=== PATIENT | female | born 1985 | race Caucasian/White ===

== ENCOUNTER → 2022-12-07 09:05 | Outpatient (CLI) | payer OTHER, SELFPAY ==
--- NOTE | ~2022-12-07 | MMUS_ITS ---
EXAMINATION: MM diagnostic juan antonio BI w ace, US breast RT limited HISTORY: Palpable right breast lumps TECHNIQUE: Additional 3-D tomosynthesis images of the breasts were performed and synthetic 2-D images were generated. CAD analysis was submitted and interpreted. High resolution Limited right breast ult rasound was performed. COMPARISON: None BREAST PARENCHYMAL COMPOSITION: Breast composed of scattered areas of fibroglandular density FINDINGS: MAMMOGRAPHIC FINDINGS: There are no suspicious masses, calcifications or architectural distortion in the either breast to azar ggest malignancy. ULTRASOUND: Limited right breast ultrasound: Normal heterogeneous echotexture without focal solid or cystic mass. IMPRESSION: 1. No evidence for malignancy in either breast. 2. Routine yearly screening mammogram and regular clinical breast examination are recommended. BI-RADS Category 1: Negative Reviewed, dictated and finalized at location A. TRON[employer] DEPARTMENT MANAGER IMPRESSION: 1. No evidence for malignancy in either breast. 2. Routine yearly screening mammogram and regular clinical breast examination a re recommended. BI-RADS Category 1: Negative
== END ==
PROVIDERS: PCP Obstetrics & Gynecology; Visit Provider Obstetrics & Gynecology
DX: N63.11 Unspecified lump in the right breast, upper outer quadrant (principal)
CPT/HCPCS: 76642; 77062; 77066; G0279

== ENCOUNTER 2024-05-18 14:43 | Emergency (ER) | payer OTHER, SELFPAY ==
--- NOTE | ~2024-05-18 | XR_ITS ---
PA, oblique, and lateral views of the left third finger CLINICAL HISTORY: Injury FINDINGS: Questionable tiny avulsion fracture from the volar aspect of the base of the third middle p halanx. No other fracture or dislocation seen. Joint spaces are intact. Soft tissues are unremarkable . IMPRESSION: Possible tiny avulsion fracture from the volar aspect of the base of the third middle phalanx. Correl ate for point tenderness. Reviewed, dictated and finalized at location M. IMPRESSION: Possible tiny avulsion fracture from the volar aspect of the base of the third middle phalanx. Correlate for point tenderness.
--- NOTE | ~2024-05-18 | XR_ITS ---
Right ankle Technique: AP, oblique, and lateral views were obtained. Clinical History: Status post fall Findings: No acute fracture or dislocation is seen. Osseous alignment is anatomic. Ankle mortise and other visualized joint spaces are preserved. Soft tissues are otherwise unremarkable. Impression: Unremarkable right ankle. Reviewed, dictated and finalized at [facility]. Impression: Unremarkable right ankle.
[2024-05-18 15:00] VITALS: BP 141/79; PULSE 79; RESP 16; TEMP 37; O2SAT 99
--- NOTE | 2024-05-18 15:01 | ED.GENADULT ---
HPI - General Adult General Chief complaint: Extremity Injury, Lower Stated complaint: right ankle/left middle finger injury Time Seen by Provider: 05/18/24 15:01 Source: patient Mode of arrival: ambulatory Limitations: no limitations History of Present Illness HPI narrative: 39-year-old female patient presents to the [facility] after a fall last night. Patient states she was at a friend's house and it was dark and trying to get her kids into the van and fell off their driveway which had about a 12 in drop. Patient states she twisted her right ankle and jammed her middle finger on her left hand. Denies hitting her head or lost consciousness. Related Data Home Medications Medication Instructions Recorded Confirmed escitalopram oxalate 10 mg tablet 10 mg PO DAILY 05/18/24 05/18/24 Allergies Allergy/AdvReac Type Severity Reaction Status Date / Time clavulanic acid Allergy Severe THROAT Verified 05/18/24 15:03 SWELLS,DIFFICULTY BREATHING amoxicillin [From Augmentin] Allergy Intermediate Difficulty Verified 05/18/24 15:03 Breathing propoxyphene AdvReac Mild DIZZINESS Verified 05/18/24 15:03 HYDROCODONE BIT AdvReac Unknown DIZZINESS Uncoded 05/18/24 15:03 Review of Systems Review of Systems: CONSTITUTIONAL: Denies fever, chills, or sweats. EYES: Denies visual changes, redness, or discharge. ENT: Denies rhinorrhea, congestion, sore throat, or otalgia. CARDIOVASCULAR: Denies chest pain, palpitations, or edema. RESPIRATORY: Denies cough or dyspnea. GASTROINTESTINAL: Denies abdominal pain, nausea, vomiting, or diarrhea. GENITOURINARY: Denies dysuria or hematuria. SKIN: Denies rash or itching. MUSCULOSKELETAL: Denies back pain, joint pain, or myalgia. Positive right ankle pain and positive left middle finger pain NEUROLOGIC: Denies headache, numbness, or weakness. PSYCHIATRIC: Denies anxiety or depression. 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 There is no relevant family history pertinent to the presenting complaint. Exam Narrative: GENERAL: Well-appearing, well-nourished, and in no acute distress. HEAD: Normocephalic, atraumatic. EYES: PERRLA and EOMI. ENT: Nares clear, no rhinorrhea or epistaxis. Mucous membranes moist. NECK: Supple. No lymphadenopathy CHEST: Clear to auscultation. No respiratory distress. HEART: Regular rate and rhythm. No murmur heard. Normal peripheral pulses. ABDOMEN: Soft, nontender, nondistended, normal active bowel sounds. EXTREMITIES: Patient is able to bear weight and ambulate with pain. The R ankle is without obvious asymmetry or deformity when compared to the L ankle. Patient can flex/extend, invert/damon with pain. positive ecchymosis, or soft tissue swelling. bartolome tenderness to palpation over the medial and lateral malleolus. Anterior talofibular ligament, posterior talofibular ligament, calcaneofibular ligament nontender and without swelling. No t
== END 2024-05-18 16:22 | disposition home or self-care (01) ==
PROVIDERS: Emergency Provider Nurse Practitioner Family
DX: S93.401A Sprain of unspecified ligament of right ankle, initial encounter (principal); W17.89XA Other fall from one level to another, initial encounter; S62.653A Nondisplaced fracture of middle phalanx of left middle finger, initial encounter for closed fracture; G62.9 Polyneuropathy, unspecified
CPT/HCPCS: 29130; 73140; 73610; 99214; G0463

== ENCOUNTER 2025-05-22 17:46 | Emergency (ER) | payer BC, OTHER, SELFPAY ==
--- NOTE | ~2025-05-22 | CT_ITS ---
EXAMINATION: CTA chest PE protocol DATE: 05/22/2025 22:46 INDICATION: CP/SOB, recent procedures TECHNIQUE: Computed tomography angiography (CTA) of the chest was performed with 100 mL Omnipaque-350 intravenous contrast timed to evaluate the pulmonary arteries. Coronal maximum intensity projection 3D-reconstructions were created by the technologist. The dose-length product (DLP) was 297.43 mGy-cm. Automated exposure control and iterative reconstruction technique were employed. COMPARISON: None. FINDINGS: Lung parenchyma and airways: Clear. Pleura: Unremarkable. Thoracic inlet, axillae and chest wall: Unremarkable. Thoracic aorta: No significant dilation. No dissection. Mediastinum: Normal. Heart and pericardium: Normal. Coronary artery calcifications: Absent. Upper abdomen: Multiple hyperenhancing liver masses measuring up to 6.2 cm in the right lobe. 4 mm an d 8mm hyperenhancing foci in the spleen. Bones: No acute osseous finding. Pulmonary arteries: Study quality: Somewhat limited due to mild motion and beam hardening, overall di agnostic. No pulmonary emboli detected. IMPRESSION: No CT evidence of acute pulmonary embolus. No acute process detected in the chest. Multiple enhancing liver masses measuring up to 6.2 cm in the right lobe, may represent adenomas, FNH , or primary or secondary malignancy. Subcentimeter hyperenhancing foci in the spleen may represent h emangiomas or hypervascular metastases. Recommend MRI of the abdomen for further characterization. Reviewed, dictated and finalized at location K. IMPRESSION: No CT evidence of acute pulmonary embolus. No acute process detected in the chest. Multiple enhancing liver masses measuring up to 6.2 cm in the right lobe, may r epresent adenomas, FNH, or primary or secondary malignancy. Subcentimeter hyper enhancing foci in the spleen may represent hemangiomas or hypervascular metasta ses. Recommend MRI of the abdomen for further characterization.
--- NOTE | ~2025-05-22 | XR_ITS ---
EXAMINATION: XR chest 2V Exam Date/Time: 05/22/2025 18:14 CDT HISTORY: shortness of breath and chest heaviness Comparison: None. RESULT: Lines, tubes, and devices: None. Lungs and pleura: Clear. Cardiomediastinal silhouette: Normal. Other: No acute osseous or upper abdominal finding. IMPRESSION: No acute cardiopulmonary process. Reviewed, dictated and finalized at location K.
--- OUTSIDE RECORDS SUMMARY | 2025-05-22 17:49 | XMS_ITS | Encounter Summary ---
Author Organization [facility] Address [address] [place] [address] Phone Care Team Providers Care Manager Mobility Name Role Phone Billy Paz MD Unavailable [phone] Zion Jimenez MD Primary Care Provider Reason for Visit * Reason Onset Date Comments requesting referral 05/20/2025 Encounter Details Date Type Department Care Team (Late st Contact Info) Description 05/20/2025 Telephone [facility] Ophthalmology [address] [place], [place] [id number] Sydney Medina, [place] [address] [phone] requesting referral Social History Tobacco Use Types Packs/Day Years Used Date Smoking Tobacco: Never Passive Smoke Exposure: Never Smokeless Tobacco: Never Alcohol Use Standard Drinks/Week Comments No 0 (1 standard drink = 0.6 oz pur e alcohol) AUDIT-C Answer Date Recorded Q1: How often do you have a drink containing alc ohol? Never 04/20/2025 Average Number of Drinks Not on file 025 Frequency of Binge Drinking Not on file 04/05 PHQ-2 Answer Date Recorded PHQ-2 Total Score (If total score is 3 or more points, staff should administer the PHQ-9) 0 12/20/2021 Exercise Vital Sign Answer Date Recorde d On average, how many days pe r week do you engage in moderate to strenuous exercise (like a brisk walk)? 0 days 12/20/2021 On average, how many minutes do you engage in exercise at this level? 0 min 12/20/2021 Personal Safety Answer Date Recorded Have you ever been in or are you currently in a harmful physical or emotional relationship or is someone making you feel afraid or unsafe? Denies 05/19/2025 Comments No Sex and Gender Information Value Date Recorded Sex Assigned at Not on file Legal Sex Female 2:16 AM LEADERSHIP DEVELOPMENT INSTRUCTOR Gender Identity Female 11/22/2022 10:26 AM LEADERSHIP DEVELOPMENT INSTRUCTOR Sexual Orientation Straight 11/22/2022 10 :26 AM LEADERSHIP DEVELOPMENT INSTRUCTOR documented as of this encounter Miscellaneous Notes * Telephone Encounter - Princess Lynn - 05/22/2025 3:42 PM CDT She is scheduled for 06/18/25 at [address] Sood Please review if this ok per Dr. Craven Urgent request. * Telephone Encounter - Princess Lynn - 05/22/2025 3:29 PM CDT MD review for urgency per note below Noted from Dr. Craven I spoke with Katrin Swna about the lumbar puncture results. The elevated opening pressure confirmed a diagnosis of idiopathic intracranial hypertension. The topiramate was increased to 50mg BID. An urgent referral to neuro ophthalmology was placed. Pt states increased SOB, syncope felling, dizzy spells, brain fog and they reduced her Topamax to25 mg BID po. The squiggly line in vision have improved. After the LP she had to have a blood patch. * Telephone Encounter - Juan A Shannon MD - 05/21/2025 11:47 AM CDT It looks like she found a completely normal examination which is very reassuring. All of the MRI findings are nonspecific. I am not sure why we would need to see her unless she develops new symptoms or papilledema. * Telephone Encounter - Sarah Lopez - 05/20/2025 12:58 PM CDT Pt called stating they were referred by Neurologist Dr. Craven to be seen by neuro ophthalmology. They were seen by Dr. Mae in January and requesting a referral to neuro ophthalmology. Dr. Craven is concerned about the squiggly lines that last 45 min or so on right side once a weekwould be a precursor to vision loss. Please call pt back [phone] documented in this encounter Plan of Treatment Not on file documented as of this encounter Visit Diagnoses Not on filedocumented in this encounter Care Teams Manager Mobility Relationship Specialty Start Date End Date Zion Jimenez MD [address] [place] [address] PCP - General Endocrinology Diabetes & Metabolism 08/31/21 Billy Paz MD [address] [place] [address] Referring Physician Obstetrics and Gynecology 04/18/21 documented as of this encounter
--- OUTSIDE RECORDS SUMMARY | 2025-05-22 17:49 | XMS_ITS | Encounter Summary ---
Author Organization [facility] Address [address] [place] [address] Care Team Providers Care Management Nurse Rn Name Role Phone Billy Paz MD Unavailable [phone] Zion Jimenez MD Primary Care Provider Encounter Details Date Type Department Care Team (Late st Contact Info) Description 04/12/2021 Telephone [facility] [address] [facility] [place] [address] Tameka Roman, RT Social History Tobacco Use Types Packs/Day Years Used Date Smoking Tobacco: Never Smokeless Tobacco: Never Alcohol Use Standard Drinks/Week Comments No 0 (1 standard drink = 0.6 oz pur e alcohol) Comments Unknown Sex and Gender Information Value Date Recorded Sex Assigned at Not on file Legal Sex Female 2:16 AM COMPUTER SYSTEMS ADMINISTRATOR Gender Identity Female 11/22/2022 10:26 AM COMPUTER SYSTEMS ADMINISTRATOR Sexual Orientation Straight 11/22/2022 10 :26 AM COMPUTER SYSTEMS ADMINISTRATOR documented as of this encounter Plan of Treatment Not on file documented as of this encounter Visit Diagnoses Not on filedocumented in this encounter Additional Health Concerns Infection Onset Date Last Indicated Resolved Time COVID: Suspected 02/08/2023 02/08/2023 02/09/2023 3:05 AM CDT documented as of this encounter Care Teams Management Nurse Rn Relationship Specialty Start Date End Date Zion Jimenez MD [address] [place] [address] PCP - General Endocrinology Diabetes & Metabolism 08/31/21 Billy Paz MD [address] [place] [address] Referring Physician Obstetrics and Gynecology 04/18/21 documented as of this encounter
--- OUTSIDE RECORDS SUMMARY | 2025-05-22 17:49 | XMS_ITS | Referral Summary ---
Author Organization [facility] Address [address] [place] [address] Care Team Providers Care Supervisor Housecleaner Name Role Phone Billy Paz MD Unavailable [phone] Zion Jimenez MD Primary Care Provider Encounters Date Type Department Care Team Description 05/22/2025 Telephone [facility] General Neurology [address] 6th [place] [address] [place] [id number] Stacy Gillis RN 05/20/2025 Telephone [facility] Ophthalmology [address] [place] [address] Sydney Medina OD requesting referral 05/19/2025 9:11 AM CDT - 05/19/2025 11:59 PM CDT Hospital Encounter [facility] Neuro Interventional Radiology [address] [place] [address] Arrived Discharge Disposition: Discharge to home or self care 05/15/2025 Telephone [facility] General Neurology [address] [place] [phone] Kings Craven Jr., MD 05/15/2025 Orders Only [facility] Neuro Interventional Radiology [address] [place] [address] Myra Rodriguez RN 05/15/2025 10:06 AM CDT - 05/15/2025 11:59 PM CDT Hospital Encounter [facility] Neuro Interventional Radiology [address] [place] [address] IIH (idiopathic intracranial hypertension) Discharge Disposition: Discharge to home or self care 05/12/2025 Telephone [facility] General Neurology [address] 6th [place] [address] [place] [address] Stacy Gillis, WALLACE 05/12/2025 Telephone [facility] Neuro Interventional Radiology [address] [place] [address] Dianna Cowan, WALLACE 05/11/2025 Telephone [facility] Neuro Interventional Radiology [address] [place] [address] Dianna Cowan, WALLACE 05/06/2025 Telephone [facility] Neuro Interventional Radiology [address] [place] [address] Dianna Cowan, WALLACE 04/21/2025 Telephone [facility] General Neurology [address] 6th [place] [address] [place] [address] Stacy Gillis, WALLACE 04/20/2025 5:40 PM CDT Lab [facility] ([facility]) [address] [place] [phone] Nonintractable headache, unspecified chronicity pattern, unspecified headache type 04/20/2025 2:30 PM CDT Office Visit [facility] General Neurology [address] 6th [place] [address] [place] [address] Kings Craven Jr., MD IIH (idiopathic intracranial hypertension) (Primary Dx); Nonintractable headache, unspecified chronicity pattern, unspecified headache type 03/09/2025 Telephone [facility] Scheduling [address] [place] [address] Kings Craven Jr., MD Scheduling Appointments 02/24/2025 Results Follow-Up [facility] [address] [place] [address] [address] [place] [address] Anabell Hinds NP EMG/NCV - 02/20/2025 2:20 PM CDT Procedure visit [facility] Neurological Testing [address]th [place] [address] [place] [phone] Numbness and tingling from Last 3 Months Allergies Active Allergy Reactions Criticality Noted Date Comments Amoxicillin-Pot Clavulanate Other (See comments) High 01/15/2020 Able to take Amoxicillin Clindamycin Unknown 01/15/2020 Codeine Nausea only Reaction: Nausea, Hydrocodone-Acetaminop hen Headache,Nausea And Vomiting Low 01/30/2011 Iodinated Contrast Media Shortness of breath,Rash High 04/15/2021 Ioversol Propoxyphene Nausea only Reaction: nausea, Medications loperamide (IMODIUM A-D) 2 mg tablet Take by mouth Active hydrocortisone 1 % cream Apply topically 2 (two) times a day PRN Active mesalamine (CANASA) 1,000 mg suppositoryIndi cations:Ulcerat amaury Proctitis Insert 1 suppository (1,000 mg total) into the rectum nightly Use as directed 90 suppository 1 023 Active topiramate (TOPAMAX) 25 mg capsule Take 2 capsules (50 mg total) by mouth 2 (two) times a day 120 capsule 6 025 2025 Active topiramate (TOPAMAX) 25 mg capsuleIndicati ons:IIH (idiopathic intracranial hypertension) Take 1 capsule (25 mg total) by mouth 2 (two) times a day 60 capsule 5 025 2024 Discontinued Active Problems Problem Noted Date Diagnosed Date Borderline IIH (idiopathic intracranial hyperten javon) 01/12/2025 Overview (01/12/2025): -Pt w/o long history of migraine w/ aura, seem to be increasing in frequency as of late -Symptomatic for right sided neck tingling that goes up right shoulder and to ear, base of skull discomfort/pressure sensation, and right foot numbness. -Pt was evaluated by PCP who ordered a MRI with results as follows: IMPRESSION: 1. No definite intracranial abnormality. 2. Borderline partially empty sella and questionable flattening of the posterior globes, which are likely within normal limits. However, given the history of headaches, this raises the possibility of borderline idiopathic intracranial hypertension; recommend ophthalmologic evaluation to exclude papilledema. -VA 20/20 cc OD and OS, EOMs full, no APD either eye, color plates full each eye, HVF 24-2 reliable and full each eye, crowded optic discs w/o blood vessel obscuration on funduscopic exam Assessment & Plan (01/12/2025 3:44 PM CDT): Educated pt on IIH and lack of concerning signs on ocular examination today. We discussed further workup including lumbar puncture, which she has not had. She is scheduled w/ neurology 04/20/2025, we will defer lumbar puncture to them if they feel it is necessary. We reviewed return precautions including worsening CM, changes in visual aura, transient vision loss, positional changes, pulsatile tinnitus. Pt to seek care if any occur, otherwise we will f/u in 4 months for repeat testing. Pain in both feet 12/26/2022 Assessment & Plan (12/26/2022 3:59 PM GAS CUTTER): Plantar fasciitis? Seeing podiatry soon. Depression with anxiety 12/26/2022 Assessment & Plan (01/10/2024 3:42 PM GAS CUTTER): Doing well off Lexapro. She will resume if symptoms worsen or impair daily functioning. Assessment & Plan (04/05/2023 3:36 PM CDT): Improved on Lexapro 10 mg daily. Continue same dose. Assessment & Plan (12/26/2022 4:00 PM GAS CUTTER): Start Lexapro 10 mg daily. Discussed benefits and possible side effects. Focal nodular hyperplasia of liver 12/20/2021 Assessment & Plan (12/26/2022 3:59 PM GAS CUTTER): Saw GI previously. Assessment & Plan (12/20/2021 3:29 PM GAS CUTTER): Will see Dr. Reyes in January. Encounter for preventive care 12/20/2021 Assessment & Plan (12/26/2022 4:00 PM GAS CUTTER): Overall good health. See [employer] routinely for well woman visits. Breast cancer screening to start at age 40. Colon cancer screening per GI. Vaccinations UTD. Labs UTD. Assessment & Plan (12/20/2021 3:29 PM GAS CUTTER): Continue healthy lifestyle. Start MMG at age 39 due to average risk. Colon cancer screening per GI. Vaccinations UTD. See [facility] [facility] for routine follow up. Vision changes 08/31/2021 Assessment & Plan (08/31/2021 8:54 AM CDT): Labs today Opth visit If reoccurs call and will proceed with head imaging Liver hemangioma 04/25/2021 Assessment & Plan (01/10/2024 4:05 PM GAS CUTTER): No further follow up needed. Avoid estrogen. Ulcerative proctitis with rectal bleeding 2020 Assessment & Plan (01/10/2024 3:46 PM GAS CUTTER): Take mesalamine more consistently. Sees GI. Assessment & Plan (04/05/2023 3:36 PM CDT): GI appt upcoming. Assessment & Plan (12/26/2022 3:59 PM GAS CUTTER): Needs to see GI - she will call for an appt. Assessment & Plan (12/20/2021 3:29 PM GAS CUTTER): Instructed to see GI again for further management. Mesalamine previously prescribed, but not taking. Irritable bowel syndrome with diarrhea Resolved Problems Problem Noted Date Diagnosed Date Resolved Date Neuropathy 10/11/2022 12/26/2022 Assessment & Plan (10/11/2022 3:32 PM GAS CUTTER): Her foot discomfort sounds neuropathic in nature. No clear etiology based on her history (UC not associated with neuropathy as far as I am aware). Will send labs as below to rule out possible causes of neuropathy. Start gabapentin 100 mg nightly empirically. Proceed with foot XR's to rule out mechanical issues that may be contributing to foot pain. Immunizations Immunization Administration Dates Next Due DT 11/05/2008 Tdap 09/30/2017 Social History Tobacco Use Types Packs/Day Years Used Date Smoking Tobacco: Never Passive Smoke Exposure: Never Smokeless Tobacco: Never Tobacco Cessation:Counseling Given: Not Answered Alcohol Use Standard Drinks/Week Comments No 0 [...] on file Legal Sex Female 2:16 AM GAS CUTTER Gender Identity Female 11/22/2022 10:26 AM GAS CUTTER Sexual Orientation Straight 11/22/2022 10 :26 AM GAS CUTTER Last Filed Vital Signs Vital Sign Reading Time Taken Comments Blood Pressure 130/77 05/19/2025 11:36 AM CDT Pulse 59 05/19/2025 11:36 AM CDT Temperature 36.4 C (97.6 F) 05/19/2025 11:36 AM CDT Respiratory Rate 12 05/19/2025 9:38 AM CDT Oxygen Saturation 98% 05/19/2025 11:36 AM CDT Inhaled Oxygen Concentration - - Weight 83 kg (183 lb) 05/15/2025 10:14 AM CDT Height 152.4 cm (5') 05/15/2025 10:14 AM CDT Body Mass Index 35.74 05/15/2025 10:14 AM CDT Plan of Treatment Not on file Procedures Procedure Name Priority Date/Time Associated Diagnosis Comments EPIDURAL BLOOD PATCH IP Routine 05/19/2025 10:32 AM CDT IR LUMBAR PUNCTURE, DIAGNOSTIC INCL FLUORO GUIDANCE Schedule Routine, Read Routine (OP Routine) 05/15/2025 11:17 AM CDT IIH (idiopathic intracranial hypertension) CSF PROTEIN Routine 05/15/2025 10:39 AM CDT CELL COUNT W REFLEX DIFFERENTIAL, CSF Routine 05/15/2025 10:39 AM CDT GLUCOSE, CSF Routine 05/15/2025 10:39 AM CDT EGFR Routine 04/20/2025 3:40 PM CDT Nonintractable headache, unspecified chronicity pattern, unspecified headache type DIFFERENTIAL AUTO Routine 04/20/2025 3:4 0 PM CDT Nonintractable headache, unspecified chronicity pattern, unspecified headache type CBC WITH AUTO DIFFERENTIAL Routine 04/20/2025 3:40 PM CDT Nonintractable headache, unspecified chronicity pattern, unspecified headache type COMPREHENSIVE METABOLIC PANEL Routine 04/20/2025 3:40 PM CDT Nonintractable headache, unspecified chronicity pattern, unspecified headache type EMG/NCV Routine 02/20/2025 3:12 PM CDT Numbness and tingling from Last 3 Months Results * IR Epidural Blood Patch (05/19/2025 10:32 AM CDT) Anatomical Region Laterality Modality Spine N/A Radio Fluoroscop y 05/19/2025 11:3 9 AM CDT Impressions 05/19/2025 4:38 PM CDT Successful epidural blood patch procedure at L3-L4 under fluoroscopic guidance. The patient reported resolution of headache after the procedure. Dr. Dillon (vice president lending) was present and participated in the procedure. Dictated by: Narendra Zee MD The radiology attending physician has personally reviewed this study, and had reviewed and/or edited this written report and agrees with it. Electronically signed by: Vilma Palmer M.D. Narrative 05/19/2025 4:38 PM CDT EXAMINATION: Epidural blood patch under fluoroscopic guidance HISTORY: 40-year-old female with recent lumbar puncture and postural headache. The patient presents for epidural blood patch. TECHNIQUE: The risks and benefits of the lumbar puncture including, but not limited to infection, intrathecal injection, neurologic injury, and lack of symptom relief were discussed with the patient. The patient was given the opportunity to ask questions. The patient acknowledged understanding, gave verbal and written consent, and wished to proceed. A time-out was performed prior to the procedure. Attending physician: Dr. Vilma Palmer M.D. was present for the entire procedure. The patient was placed prone on the table. The L3-L4 level was localized with fluoroscopy. Local anesthesia was achieved with subcutaneous injection of 1% lidocaine 2 mL. A 20-gauge 3.5 inch Tuohy needle was placed under fluoroscopic guidance and slowly advanced into the epidural space while connected to a loss of resistance syringe. Once sudden loss or resistance was noted in the syringe consistent with epidural placement of the needle, 20 mL of autologous venous blood was injected slowly into the epidural space through the needle. The needle was then removed, the skin was cleansed with hydrogen peroxide and a bandage was placed. The patient tolerated the procedure well. The patient was then transferred to the outpatient recovery unit for further observation and 1 hour of bedrest. Procedure Note Vilma Palmer MD - 05/19/2025 EXAMINATION: Epidural blood patch under fluoroscopic guidance HISTORY: 40-year-old female with recent lumbar puncture and postural headache. The patient presents for epidural blood patch. TECHNIQUE: The risks and benefits of the lumbar puncture including, but not limited to infection, intrathecal injection, neurologic injury, and lack of symptom relief were discussed with the patient. The patient was given the opportunity to ask questions. The patient acknowledged understanding, gave verbal and written consent, and wished to proceed. A time-out was performed prior to the procedure. Attending physician: Dr. Vilma Palmer M.D. was present for the entire procedure. The patient was placed prone on the table. The L3-L4 level was localized with fluoroscopy. Local anesthesia was achieved with subcutaneous injection of 1% lidocaine 2 mL. A 20-gauge 3.5 inch Tuohy needle was placed under fluoroscopic guidance and slowly advanced into the epidural space while connected to a loss of resistance syringe. Once sudden loss or resistance was noted in the syringe consistent with epidural placement of the needle, 20 mL of autologous venous blood was injected slowly into the epidural space through the needle. The needle was then removed, the skin was cleansed with hydrogen peroxide and a bandage was placed. The patient tolerated the procedure well. The patient was then transferred to the outpatient recovery unit for further observation and 1 hour of bedrest. IMPRESSION: Successful epidural blood patch procedure at L3-L4 under fluoroscopic guidance. The patient reported resolution of headache after the procedure. Dr. Dillon (vice president lending) was present and participated in the procedure. Dictated by: Narendra Zee MD The radiology attending physician has personally reviewed this study, and had reviewed and/or edited this written report and agrees with it. Electronically signed by: Vilma Palmer M.D. Narendra Zee MD IM IR PROCEDURES Final Resul t * IR Lumbar Puncture, Diagnostic incl Fluoro Guidance (05/15/2025 11:17 AM CDT) Anatomical Region Laterality Modality Spine N/A Radio Fluoroscop y 05/15/2025 11:2 3 AM CDT Impressions 05/15/2025 12:51 PM CDT Successful diagnostic lumbar puncture under fluoroscopic guidance. Dictated by: Fransico Bhakta M.D. The radiology attending physician has personally reviewed this study, and had reviewed and/or edited this written report and agrees with it. Electronically signed by: Sundeep Reynolds M.D. Narrative 05/15/2025 12:51 PM CDT EXAMINATION: Diagnostic fluoroscopically guided lumbar puncture HISTORY: Concern for IIH. TECHNIQUE: The risks and benefits of the lumbar puncture including, but not limited to infection, bleeding, spinal headache, cerebrospinal fluid (CSF) leak requiring blood patch procedure, and irritation or damage to nerves causing pain or permanent injury were discussed with the patient. The patient was given the opportunity to ask questions. The patient acknowledged understanding, gave verbal and written consent, and wished to proceed. A time-out was performed prior to the procedure. Attending physician: Dr. Sundeep Reynolds M.D. was present for the entire procedure. The L2-L3 level was localized with fluoroscopy. The ribs were counted and this level confirmed. The skin overlying this level was sterilely prepped, draped, and infiltrated with 1% lidocaine for local anesthesia. Under intermittent fluoroscopic guidance, a 22 gauge 5 inch Quincke spinal needle was inserted into the thecal sac at this level. Clear CSF was identified. A total of 2.5 ml of CSF was removed and placed into 2 specimen tubes. The patient was then transferred to the nursing area for further observation and 1 hour of bedrest. OPENING PRESSURE: 30.5 mmHg. CLOSING PRESSURE: 26 mmHg. Procedure Note Sundeep Reynolds MD PhD - 05/15/2025 EXAMINATION: Diagnostic fluoroscopically guided lumbar puncture HISTORY: Concern for IIH. TECHNIQUE: The risks and benefits of the lumbar puncture including, but not limited to infection, bleeding, spinal headache, cerebrospinal fluid (CSF) leak requiring blood patch procedure, and irritation or damage to nerves causing pain or permanent injury were discussed with the patient. The patient was given the opportunity to ask questions. The patient acknowledged understanding, gave verbal and written consent, and wished to proceed. A time-out was performed prior to the procedure. Attending physician: Dr. Sundeep Reynolds M.D. was present for the entire procedure. The L2-L3 level was localized with fluoroscopy. The ribs were counted and this level confirmed. The skin overlying this level was sterilely prepped, draped, and infiltrated with 1% lidocaine for local anesthesia. Under intermittent fluoroscopic guidance, a 22 gauge 5 inch Quincke spinal needle was inserted into the thecal sac at this level. Clear CSF was identified. A total of 2.5 ml of CSF was removed and placed into 2 specimen tubes. The patient was then transferred to the nursing area for further observation and 1 hour of bedrest. OPENING PRESSURE: 30.5 mmHg. CLOSING PRESSURE: 26 mmHg. IMPRESSION: Successful diagnostic lumbar puncture under fluoroscopic guidance. Dictated by: Fransico Bhakta M.D. The radiology attending physician has personally reviewed this study, and had reviewed and/or edited this written report and agrees with it. Electronically signed by: Sundeep Reynolds M.D. Kings Craven Jr., MD IMG FLUOROSCOPY [place] OCEDURES Final Result * (ABNORMAL) Cell count w/reflex diff, CSF (05/15/2025 10:39 AM CDT) Tube Number, CSF Tube 1 Color, CSF Colorless Colorless [facility] Clarity, CSF Clear Clear [facility] Xanthochromia , CSF Absent Absent [facility] Nucleated cells, CSF 0 0 - 5 /cumm [facility] RBC, CSF 53(H) 0 - 0 /cumm [facility] CSF 05/15/2025 10:3 9 AM CDT 05/15/2025 1:43 PM CDT Kings Craven Jr., MD LAB BODY FLUIDS AN D STOOLS ORDERABLES Final Result Performing Organization Address [facility] Co de Phone Number [facility] [place] [employer] [place] [address] * Protein, total, CSF (05/15/2025 10:39 AM CDT) Pathologist [facility] Protein, CSF 24 5 - 45 mg/dL Comment:Reviewed CSF 05/15/2025 10:3 9 AM CDT 05/15/2025 1:50 PM CDT Kings Craven Jr., MD LAB BODY FLUIDS AN D STOOLS ORDERABLES Final Result Performing Organization Address [facility] Co de Phone Number [facility] Department [place] [employer] [place] [address] * Glucose, CSF (05/15/2025 10:39 AM CDT) Glucose, CSF 65 mg/dL Comment: Reviewed Reference Interval Information: CSF Glucose should be 60-66% of the most current plasma glucose concentration (milligrams/deciliter) CLIN. CHEM. 41/3, [phone] (1994), Clinical Utility of Biochemical Analysis of Cerebrospinal Fluid, Ken Torrez and Reji Horner. Current interpretive data was last revised on 2019. CSF 05/15/2025 10:3 9 AM CDT 05/15/2025 1:50 PM CDT us Kings Craven Jr., MD LAB BODY FLUIDS AN D STOOLS ORDERABLES Final Result [facility] Department [place] [address] * eGFR (04/20/2025 3:40 PM CDT) eGFR >90 >=60 mL/min/1. 73 m2 Comment: Interpretive Data Reference Interval Normal >/= 90 mL/min/1.73m2 Mildly decreased* 60 - 89 mL/min/1.73m2 Mildly to moderately decreased 45 - 59 mL/min/1.73m2 Moderately to severely decreased 30 - 44 mL/min/1.73m2 Severely decreased 15 - 29 mL/min/1.73m2 Kidney Failure < 15 mL/min/1.73m2 *Relative to young adult level Estimated glomerular filtration rate is determined by the 2020 CKD-EPI equation recommended by the National Kidney Foundation (A Unifying Approach to GFR Estimation: Recommendations of the NKF-ASK Task Force on Reassessing the Inclusion of Race in Diagnosing Kidney Disease, JASN 2020). The CKD-EPI equation should not be used for patients with unstable renal function and has not been validated in children and those over 70. Current interpretive data was last reviewed 2021. Blood 04/20/2025 3:40 PM CDT 04/20/2025 4:16 PM CDT us Kings Craven Jr., MD LAB BLOOD ORDERABL ES Final Result [facility] Department [place] [address] * Differential, auto (04/20/2025 3:40 PM CDT) Neutrophil abs 5.94 1.50 - 6.50 K/cumm Imm gran abs 0.04 0.00 - 0.10 K/cumm [facility] Lymphocyte abs 1.76 0.80 - 3.30 K/cumm [facility] Monocyte abs 0.55 0.20 - 0.80 K/cumm [facility] Eosinophil abs 0.11 0.00 - 0.50 K/cumm [facility] Basophil abs 0.05 0.00 - 0.10 K/cumm [facility] Neutrophil pct 70.3 % [facility] Comment: Interpretive Data Percent cell count reference ranges are not reported, since discordance with absolute values may lead to misinterpretation of CBC data. Current Interpretive Data was last revised on 2018. Imm gran pct 0.5 % [facility] Comment: Interpretive Data Percent cell count reference ranges are not reported, since discordance with absolute values may lead to misinterpretation of CBC data. Current Interpretive Data was last revised on 2018. Lymphocyte pct 20.8 % [facility] Comment: Interpretive Data Percent cell count reference ranges are not reported, since discordance with absolute values may lead to misinterpretation of CBC data. Current Interpretive Data was last revised on 2018. Monocyte pct 6.5 % [facility] Comment: Interpretive Data Percent cell count reference ranges are not reported, since discordance with absolute values may lead to misinterpretation of CBC data. Current Interpretive Data was last revised on 2018. Eosinophil pct 1.3 % [facility] Comment: Interpretive Data Percent cell count reference ranges are not reported, since discordance with absolute values may lead to misinterpretation of CBC data. Current Interpretive Data was last revised on 2018. Basophil pct 0.6 % [facility] Comment: Interpretive Data Percent cell count reference ranges are not reported, since discordance with absolute values may lead to misinterpretation of CBC data. Current Interpretive Data was last revised on 2018. Blood 04/20/2025 3:40 PM CDT 04/20/2025 4:11 PM CDT Kings Craven Jr., MD LAB BLOOD ORDERABL ES Final Result Performing Organization Address [facility]/ZIP Co de Phone Number [facility] [place] [employer] [place] [address] * (ABNORMAL) CBC with auto differential (04/20/2025 3:40 PM CDT) Pathologist [facility] WBC 8.45 3.80 - 9.90 K/cumm Hgb 12.7 11.9 - 15.5 g/dL [facility] Hct 38.0 35.6 - 45.5 % [facility] Plt 343 150 - 400 K/cumm [facility] MPV 8.8(L) 9.1 - 12.3 fL [facility] RBC 4.65 3.90 - 5.20 M/cumm [facility] MCV 81.7 81.3 - 96.4 fL [facility] MCH 27.3 27.1 - 33.3 pg [facility] MCHC 33.4 32.3 - 35.7 g/dL [facility] RDW CV 12.9 11.1 - 14.9 % [facility] RDW SD 38.2 35.7 - 48.1 fL [facility] NRBC abs 0.00 0.00 - 0.01 K/cumm [facility] Blood 04/20/2025 3:40 PM CDT 04/20/2025 4:11 PM CDT Kings Craven Jr., MD LAB BLOOD ORDERABL ES Final Result Performing Organization Address [facility]/ZIP Co de Phone Number [facility] [place] [address] * Comprehensive metabolic panel (04/20/2025 3:40 PM CDT) Sodium 140 135 - 145 mmol/L Potassium, pl 4.0 3.3 - 4.9 mmol/L [facility] Chloride 105 97 - 110 mmol/L [facility] CO2 28 22 - 32 mmol/L [facility] Anion gap 7 2 - 15 mmol/L [facility] BUN 13 6 - 25 mg/dL [facility] Creatinine 0.78 0.60 - 1.10 mg/dL [facility] Glucose 115 70 - 199 mg/dL [facility] Comment: Interpretive Data Fasting glucose >/= 126 mg/dl is diagnostic for diabetes. Fasting is defined as no caloric intake for at least 8 hours. Fasting glucose between 100 mg/dl to 125 mg/dl is diagnostic of prediabetes. In a patient with classic symptoms of hyperglycemia or hyperglycemic crisis, a random glucose >/= 200 mg/dl is diagnostic for diabetes. In the absence of unequivocal hyperglycemia, results should be confirmed by repeat testing. The classification and Diagnosis of Diabetes Diabetes Care 2021; 46: S19-S40. Current interpretive data was last revised 2022. Calcium 9.4 8.5 - 10.3 mg/dL [facility] Bilirubin, total 0.2 0.1 - 1.2 mg/dL [facility] Protein, pl 7.2 6.5 - 8.5 g/dL [facility] Albumin 4.2 3.5 - 5.0 g/dL [facility] Alk phos 97 40 - 130 Units/L [facility] ALT 23 7 - 45 Units/L [facility] AST 20 10 - 45 Units/L [facility] Blood 04/20/2025 3:4 0 PM CDT 04/20/2025 4:11 PM CDT us Kings Craven Jr., MD LAB BLOOD ORDERABL ES Final Result [facility] Department [place] [address] * EMG/NCV (02/20/2025 3:12 PM CDT) Anatomical Region Laterality Modality Other Narrative 02/20/2025 3:12 PM CDT Katalina Ha MD 02/20/2025 3:22 PM EMG/NCV - Date/Time: 02/20/2025 3:12 PM Performed by: Katalina Ha MD Authorized by: Anabell Hinds NP Anabell Hinds NP NEUROLOGY ORDERABLES Final Re sult from Last 3 [place] [address] [facility] Address: [address] [address] [place] [address] [facility] Address: [address] [address] [place] [address] [place] [address] [facility] Address: [address] [address] [place] [address] [employer] [employer] [facility] Address: [facility] [id number] [place] [address] Advance Directives For more information, please contact: [phone] * Full Code (Latest Code Status on File) Date Activated Date Inactivated Comments 08/14/2023 1:39 PM 08/14/2023 7:43 PM Care Teams Supervisor Housecleaner Relationship Specialty Start Date End Date Zion Jimenez MD [address] [place] [address] PCP - General Endocrinology Diabetes & Metabolism 08/31/21 Billy Paz MD [address] [place] [address] Referring Physician Obstetrics and Gynecology 04/18/21
--- OUTSIDE RECORDS SUMMARY | 2025-05-22 17:49 | XMS_ITS | Encounter Summary ---
Author Organization [facility] Address [address] [place] [address] Phone Care Team Providers Care Semiconductor Wafers Etch Operator Name Role Phone Billy Paz MD Unavailable Zion Jimenez MD Primary Care Provider Encounter Details Date Type Department Care Team (Late st Contact Info) Description 05/22/2025 Telephone [facility] General Neurology [address] 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 Craven for the work excuse for 05/20/25 through 05/22/25. Unfortunately, its difficult topredict how your shortness of breath may change with a lower dose. As we discussed earlier, this can be from many different causes. I realize you have obligations today but the best course of action would be to see a provider/UC/ER today for the shortness of breath and follow those recommendations for future activity and or restrictions. I hope you get to feeling better. Thanks, Stacy Phan afternoon Stacy, I am wondering two things: Is it possible to obtain a work note for Sunday through today for missing work due to the blood patch and thd IIH symptoms I have been experiencing including the shortness of breath? 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 This involves speaking for around 8-9 hours and moving around a classroom. Is this advised for me at this time? Currently, I am winded after a few sentences, but hoping that after decreasing the medication the shortness of breath will be better. I know it's hard to tell and we are going into the weekend. Thank you! * Telephone Encounter - Stacy Gillis RN - 05/22/2025 11:52 AM CDT Please review She has taken the Topamax at 50mg twice daily since the phone call to discuss her results. IN the past 3-4 days, she has developed severe shortness of breath. Any activity makes breathing more difficult. Breathing is not better immediately prior to the next Topamax dose I asked that she go back to the 25mg twice daily until you had a chance to review this message. I also asked that she contact her PCP as although this can happen with Topamax, there are other things that can cause shortness of breath. She has N/T face and bilateral fingertips-reviewed that this was a known effect of Topamax and is reversible Dizziness and headache accompany the shortness of breath with activity. Discussed that this was likely from the shortness of breath as it resolves when she rests. Blood patch helped BUT still having back pain and spasms. Topamax 50mg bid needs a PA for # but I let her know I didn't want to work on that until I knew what med/dose she would end up on Dr. Tanisha Mae has seen pt before. Pt was told by our neurophthalmology department that Dr. Mae had to send the referral. Ill call to see what can be done as pt needs to be seen before this provider returns to office in 2025-there is a referral in system from you for the visit. Neuro opthal [phone] will call when office opens after lunch Dr. 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
--- OUTSIDE RECORDS SUMMARY | 2025-05-22 17:49 | XMS_ITS | Encounter Summary ---
Author Organization [facility] Address [address] [place] [address] Care Team Providers Care Brazer Induction Name Role Phone Billy Paz MD Unavailable [phone] Zion Jimenez MD Primary Care Provider Encounter Details Date Type Department Care Team (Late st Contact Info) Description 05/19/[address] [facility] [address] [place] [address] Tameka Roman, RT Social History Tobacco Use Types Packs/Day Years Used Date Smoking Tobacco: Never Smokeless Tobacco: Never Alcohol Use Standard Drinks/Week Comments No 0 (1 standard drink = 0.6 oz pur e alcohol) Comments Unknown Sex and Gender Information Value Date Recorded Sex Assigned at Not on file Legal Sex Female 2:16 AM POLLUTION CONTROL ENGINEER Gender Identity Female 11/22/2022 10:26 AM POLLUTION CONTROL ENGINEER Sexual Orientation Straight 11/22/2022 10 :26 AM POLLUTION CONTROL ENGINEER documented as of this encounter Plan of Treatment Not on file documented as of this encounter Visit Diagnoses Not on filedocumented in this encounter Additional Health Concerns Infection Onset Date Last Indicated Resolved Time COVID: Suspected 02/08/2023 02/08/2023 02/09/2023 3:05 AM CDT documented as of this encounter Care Teams Brazer Induction Relationship Specialty Start Date End Date Zion Jimenez MD [address] [place] [address] PCP - General Endocrinology Diabetes & Metabolism 08/31/21 Billy Paz MD [address] [place] [address] Referring Physician Obstetrics and Gynecology 04/18/21 documented as of this encounter
--- OUTSIDE RECORDS SUMMARY | 2025-05-22 17:49 | XMS_ITS | Clinical Summary ---
Author Organization [facility] Address [address] [place] [address] Care Team Providers Care Motorboat Mechanic Inboard Name Role Phone Terry Morgan MD Unavailable Izabella Moraes MD Unavailable [phone] Source Comments [facility],non-owned Affiliates and Associated Physician Practices is amultiple site organization consisting of ambulatory clinics and hospital sitesin [place], [place], [place] and [place]. This disclosure is being madepursuant to the Care Everywhere program and may not contain all information available regarding this patient. Last updated 18.[facility] Allergies Active Allergy Reactions Criticality Noted Date Comments Propoxyphene N-Apap Nausea and/or Vomiting 01/04 Propoxyphene N-Apap Nausea and/or Vomiting 05/05 Hydrocodone-Acetaminophen Nausea and/or Vomiting 01/30/2011 Hydrocodone-Acetaminophen Nausea and/or Vomiting 05/17/2011 Medications * Be aware that medications may not be up to date on this document. Alwaysverify current medications with the patient. cetirizine (ZYRTEC) 10 MG tablet Take 10 mg by mouth daily. Active norgestimate-et hinyl estradiol (ORTHO TRI-CYCLEN; TRINESSA; TRI-PREVIFEM; TRI-SPRINTEC) 0.035 MG tablet Take 1 Tab by mouth daily. Active melatonin 5 MG tablet Take by mouth at bedtime. Active dicyclomine (BENTYL) 10 MG capsule Take 10 mg by mouth 4 times daily. Active norgestimate-et hinyl estradiol (TRINESSA, 28,) 0.035 MG tablet Take 1 Tab by mouth once daily. Active Cetirizine HCl (ZYRTEC PO) Take by mouth. Act amaury Nutritional Supplements (MELATONIN PO) Take by mouth. Active DiphenhydrAMINE HCl (BENADRYL ALLERGY PO) Take by mouth. Act amaury mesalamine (CANASA) 1000 MG suppository Insert 1 Suppository into the rectum at bedtime. Active Loperamide HCl (IMODIUM A-D) 2 MG TABS Take by mouth. Activ e mesalamine (CANASA) 1000 MG suppository Insert 1 Suppository into the rectum once daily as needed. 30 Suppository 05/17/20 11 Active trimethoprim-azar lfamethoxazole (BACTRIM DS) 800-160 MG tablet Take 1 Tab by mouth 2 times daily. 6 Tab 0 05/17/20 11 Active zolpidem (AMBIEN) 5 MG tablet Take 1 Tab by mouth nightly as needed for Insomnia. 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 Vertigo Immunizations Immunization Administration Dates Next Due DT 11/05/2008 Family History Medical History Relation Name Comments Hypertension Father Seizures Father Diabetes Mother Hypertension Mother Cancer Other breast CA Relation Name Status Comments Brother Alive Father Alive Mother Alive Other Social History Tobacco Use Types Packs/Day Years Used Date Smoking Tobacco: Never Alcohol Use Standard Drinks/Week Comments Yes 0.2 (1 standard drink = 0.6 oz p ure alcohol) occ Comments Unknown Sex and Gender Information Value Date Recorded Sex Assigned at Not on file Legal Sex Female 11:59 AM LICENSED OPTICAL DISPENSER Gender Identity Not on file Sexual Orientation Not on file Last Filed Vital Signs Vital Sign Reading Time Taken Comments Blood Pressure 108/76 05/17/2011 11:16 AM CDT Pulse 80 05/17/2011 11:16 AM CDT Temperature 37 C (98.6 F) 05/17/2011 11:16 AM CDT Respiratory Rate 18 01/30/2011 9:04 AM CDT Oxygen Saturation 100% 01/30/2011 9:04 AM CDT Inhaled Oxygen Concentration - - Weight 54.4 kg (120 lb) 05/17/2011 11:16 AM CDT Height 154.3 cm (5' 0.75) 05/17/2011 11:16 AM C DT Body Mass Index 22.86 05/17/2011 11:16 AM CDT Plan of Treatment Health Maintenance Due Date Last Done Comments LIPID TESTING 1984 MAMMOGRAM 1984 HIV SCREENING 02/06/1999 HEPATITIS C SCREENING 02/02/2002 HEPATITIS B VACCINE (1 of 3 - 19+ 3-dose series) 02/06/2003 HPV VACCINE (1 - 3-dose SCDM series) 02/06/2011 DTAP/TDAP/TD VACCINES (2 - Tdap) 11/05/2018 11/05/19 09 COVID-19 VACCINE (1 - 2023-2 5 season) 2024 DEPRESSION SCREENING 11/05/2024 INFLUENZA VACCINE (#1) 2025 ZOSTER VACCINE (1 of 2) 02/06/2034 HIB VACCINE Aged Out No longer eligi ble based on patient's age to complete this topic MENINGOCOCCAL (Group B) VACC INE SHARED DECISION-MAKING Aged Out No longer eligibl e based on patient's age to complete this topic MENINGOCOCCAL GROUPS A/C/Y/W VACCINE Aged Out No longer eligible b ased on patient's age to complete this topic PNEUMOCOCCAL VACCINE Aged Out No long er eligible based on patient's age to complete this topic Insurance [address] [place] [id number] [facility] Care Teams Motorboat Mechanic Inboard Relationship Specialty Start Date End Date Terry Morgan MD Orthopedic Surgery 05/17/11 Izabella Moraes MD Internal Medicine 05/17/11
--- OUTSIDE RECORDS SUMMARY | 2025-05-22 17:49 | XMS_ITS | Clinical Summary ---
Author Organization [facility] Address [address] [place] [address] Care Team Providers Care Commercial Review Appraiser Name Role Phone Billy Paz MD Unavailable [phone] Zion Jimenez MD Primary Care Provider Allergies Active Allergy Reactions Criticality Noted Date [...] 12/26/2022 Assessment & Plan (12/26/2022 3:59 PM WOMEN DESIGNER): Plantar fasciitis? Seeing podiatry soon. Depression with anxiety 12/26/2022 Assessment & Plan (01/10/2024 3:42 PM WOMEN DESIGNER): Doing well off Lexapro. She will resume if symptoms worsen or impair daily functioning. Assessment & Plan (04/05/2023 3:36 PM CDT): Improved on Lexapro 10 mg daily. Continue same dose. Assessment & Plan (12/26/2022 4:00 PM WOMEN DESIGNER): Start Lexapro 10 mg daily. Discussed benefits and possible side effects. Focal nodular hyperplasia of liver 12/20/2021 Assessment & Plan (12/26/2022 3:59 PM WOMEN DESIGNER): Saw GI previously. Assessment & Plan (12/20/2021 3:29 PM WOMEN DESIGNER): Will see Dr. Reyes in January. Encounter for preventive care 12/20/2021 Assessment & Plan (12/26/2022 4:00 PM WOMEN DESIGNER): Overall good health. See [employer] routinely for well woman visits. Breast cancer screening to start at age 40. Colon cancer screening per GI. Vaccinations UTD. Labs UTD. Assessment & Plan (12/20/2021 3:29 PM WOMEN DESIGNER): Continue healthy lifestyle. Start MMG at age 39 due to average risk. Colon cancer screening per GI. Vaccinations UTD. See [employer] for routine follow up. Vision changes 08/31/2021 Assessment & Plan (08/31/2021 8:54 AM CDT): Labs today Opth visit If reoccurs call and will proceed with head imaging Liver hemangioma 04/25/2021 Assessment & Plan (01/10/2024 4:05 PM WOMEN DESIGNER): No further follow up needed. Avoid estrogen. Ulcerative proctitis with rectal bleeding 2020 Assessment & Plan (01/10/2024 3:46 PM WOMEN DESIGNER): Take mesalamine more consistently. Sees GI. Assessment & Plan (04/05/2023 3:36 PM CDT): GI appt upcoming. Assessment & Plan (12/26/2022 3:59 PM WOMEN DESIGNER): Needs to see GI - she will call for an appt. Assessment & Plan (12/20/2021 3:29 PM WOMEN DESIGNER): Instructed to see GI again for further management. Mesalamine previously prescribed, but not taking. Irritable bowel syndrome with diarrhea Resolved Problems Problem Noted Date Diagnosed Date Resolved Date Neuropathy 10/11/2022 12/26/2022 Assessment & Plan (10/11/2022 3:32 PM WOMEN DESIGNER): Her foot discomfort sounds neuropathic in nature. No clear etiology based on her history (UC not associated with neuropathy as far as I am aware). Will send labs as below to rule out possible causes of neuropathy. Start gabapentin 100 mg nightly empirically. Proceed with foot XR's to rule out mechanical issues that may be contributing to foot pain. Encounters Date Type Department Care Team Description 05/22/2025 Telephone [facility] General Neurology [address] [facility] 6th [place] [address] [place] [address] Stacy Gillis RN 05/20/2025 Telephone [facility] Ophthalmology [address] [place] [address] Sydney Medina OD requesting referral 05/19/2025 9:11 AM CDT - 05/19/2025 11:59 PM CDT Hospital Encounter [facility] [address] [place] [address] Arrived Discharge Disposition: Discharge to home or self care 05/15/2025 10:06 AM CDT - 05/15/2025 11:59 PM CDT Hospital Encounter [facility] [address] [place] [address] IIH (idiopathic intracranial hypertension) Discharge Disposition: Discharge to home or self care 05/15/2025 Telephone [facility] General Neurology [address] 6th [address] [place] [address] Kings Craven Jr., MD 05/15/2025 Orders Only [facility] [address] [place] [address] Myra Rodriguez, WALLACE 05/12/2025 Telephone [facility] General Neurology [address] [place] [address] 6th [place] [address] [place] [address] Stacy Gillis RN 05/12/2025 Telephone [facility] [address] [place] [address] Dianna Cowan, WALLACE 05/11/2025 Telephone [facility] [address] [place] [address] Dianna Cowan, WALLACE 05/06/2025 Telephone [facility] [address] [place] [address] Dianna Cowan, WALLACE 04/21/[address]th [place] [address] Stacy Gillis, WALLACE 04/20/2025 5:40 PM CDT Lab [facility] [address] [place] [phone] Nonintractable headache, unspecified chronicity pattern, unspecified headache type 04/20/2025 2:30 PM CDT Office Visit [facility] General Neurology [address] [place] [address] 6th [place] [address] [place] [address] Kings Craven Jr., MD IIH (idiopathic intracranial hypertension) (Primary Dx); Nonintractable headache, unspecified chronicity pattern, unspecified headache type 03/09/2025 Telephone [facility] Scheduling [address] [place] [address] Kings Craven Jr., MD Scheduling Appointments 02/24/2025 Results Follow-Up [facility] [address] [facility] [address] [place] [phone] Anabell Hinds NP EMG/NCV - 02/20/2025 2:20 PM CDT Procedure visit [facility] Neurological Testing [address] [facility] 6th [place] [address] [place] [address] Numbness and tingling from Last 3 Months Immunizations Immunization Administration Dates Next Due DT 11/05/2008 Tdap 09/30/2017 Surgical History Surgery Date Site/Laterality Comments ORAL SURGERY Oral surgery KNEE SURGERY Left knee surgery KNEE SURGERY Knee Surgery - (Added by TW Conv) SECTION COLONOSCOPY LUMBAR PUNCTURE WO INJECTION , DIAGNOSTIC 05/15/2025 N/A EPIDURAL BLOOD PATCH 05/19/2025 N/A Medical History Medical History Date Comments Sinusitis Sinusitis Personal history of other di seases of the digestive system History of irritable bowel s yndrome - (Added by TW Conv) Ulcerative colitis (HCC) Irritable bowel syndrome 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 Migraine headache TMJ arthralgia Family History Medical History Relation Name Comments Cancer Brother Family history of malignant neoplasm - (Added by TW Conv) Hypertension Father Hypertension; Migraines Father Seizures Father Family history of seizures - (Added by TW Conv) Bladder Cancer Maternal Grandfather Cance r, bladder; Diverticulosis Maternal Grandfather Diver ticulosis; Stroke Maternal Grandmother Stroke; Arthritis Mother Family history of arthritis - (Added by TW Conv) Cataracts Mother Diabetes Mother Diabetes mellit us; /Family history of diabetes mellitus - (Added by TW Conv) Glaucoma Mother Hypertension Mother Hypertension; / Family history of hypertension - (Added by TW Conv) Migraines Mother Relation Name Status Comments Brother Father Maternal Grandfather Maternal Grandmother Mother Social History Tobacco Use Types Packs/Day Years [...] on file Legal Sex Female 2:16 AM WOMEN DESIGNER Gender Identity Female 11/22/2022 10:26 AM WOMEN DESIGNER Sexual Orientation Straight 11/22/2022 10 :26 AM WOMEN DESIGNER Obstetrics History Last Filed Vital Signs Vital Sign Reading [...] 05/15/2025 10:14 AM CDT Plan of Treatment Health Maintenance Due Date Last Done Comments Breast Cancer Screening-Mammogram 1984 Cervical Cancer Screening 1984 Hepatitis C Screening 1984 Varicella Vaccines (1 of 2 - 13+ 2-dose series) 02/06/1997 Hepatitis B Screening 02/06/2002 Depression Screening 12/20/2022 12/20/2021 Influenza Vaccine (#1) 2025 Regular Well Visit/Exam 18-64 01/15/2026, 12/26/2022, 12/20/2021 DTaP/Tdap/Td Vaccine (3 - Td or Tdap) 09/30/2027 09/30/2017, 11/05/2008 HPV Vaccines Aged Out No longer eligi ble based on patient's age to complete this topic Pneumococcal vaccine <65 Aged Out No longer eligible based on patient's age to complete this topic Procedures Procedure Name Priority Date/Time Associated Diagnosis [...] of headache after the procedure. Dr. Dillon (executive vice president of sales) was present and participated in the procedure. [...] of headache after the procedure. Dr. Dillon (executive vice president of sales) was present and participated in the procedure. [...] M.D. Kings Craven Jr., MD IMG FLUOROSCOPY SC OCEDURES Final Result * (ABNORMAL) Cell count [...] STOOLS ORDERABLES Final Result Performing Organization Address [facility] Co de Phone Number [facility] Department [place] [employer] [address] * Protein, total, CSF (05/15/2025 10:39 AM CDT) Protein, CSF 24 5 - 45 mg/dL Comment:Reviewed CSF 05/15/2025 10:3 9 AM CDT 05/15/2025 1:50 PM CDT Kings Craven Jr., MD LAB BODY FLUIDS AN D STOOLS ORDERABLES Final Result Performing Organization Address City/[facility] Co de Phone Number [facility] [place] [employer] [address] * Glucose, CSF (05/15/2025 10:39 AM CDT) [...] STOOLS ORDERABLES Final Result Performing Organization Address City/[facility]/ZIP Co de Phone Number [facility] Department [place] [address] * eGFR (04/20/2025 3:40 PM CDT) eGFR [...] ORDERABL ES Final Result Performing Organization Address City/[facility]/ZIP Co de Phone Number [facility] Department [place] [address] * Differential, auto (04/20/2025 3:40 PM CDT) Neutrophil abs 5.94 1.50 - 6.50 K/cumm Imm gran abs 0.04 0.00 - 0.10 K/cumm [facility] Lymphocyte abs 1.76 0.80 - 3.30 K/cumm [facility] Monocyte abs 0.55 0.20 - 0.80 K/cumm [facility] Eosinophil abs 0.11 0.00 - 0.50 K/cumm [facility] Basophil abs 0.05 0.00 - 0.10 K/cumm [facility] Neutrophil pct 70.3 % [facility] Comment: Interpretive Data Percent cell count reference ranges are not reported, since discordance with absolute values may lead to misinterpretation of CBC data. Current Interpretive Data was last revised on 2018. Imm gran pct 0.5 % [facility] Comment: Interpretive Data Percent cell count reference ranges are not reported, since discordance with absolute values may lead to misinterpretation of CBC data. Current Interpretive Data was last revised on 2018. Lymphocyte pct 20.8 % [facility] Comment: Interpretive Data Percent cell count reference ranges are not reported, since discordance with absolute values may lead to misinterpretation of CBC data. Current Interpretive Data was last revised on 2018. Monocyte pct 6.5 % [facility] Comment: Interpretive Data Percent cell count reference ranges are not reported, since discordance with absolute values may lead to misinterpretation of CBC data. Current Interpretive Data was last revised on 2018. Eosinophil pct 1.3 % [facility] Comment: Interpretive Data Percent cell count reference ranges are not reported, since discordance with absolute values may lead to misinterpretation of CBC data. Current Interpretive Data was last revised on 2018. Basophil pct 0.6 % [facility] Comment: Interpretive Data Percent cell count reference ranges are not reported, since discordance with absolute values may lead to misinterpretation of CBC data. Current Interpretive Data was last revised on 2018. Blood 04/20/2025 3:40 PM CDT 04/20/2025 4:11 PM CDT Kings Craven Jr., MD LAB BLOOD ORDERABL ES Final Result Performing Organization Address [facility]/ZIP Co de Phone Number [facility] [place] [address] * (ABNORMAL) CBC with auto differential (04/20/2025 3:40 PM CDT) WBC 8.45 3.80 - 9.90 K/cumm Hgb 12.7 11.9 - 15.5 g/dL [facility] Hct 38.0 35.6 - 45.5 % [facility] Plt 343 150 - 400 K/cumm [facility] MPV 8.8(L) 9.1 - 12.3 fL [facility] RBC 4.65 3.90 - 5.20 M/cumm [facility] MCV 81.7 81.3 - 96.4 fL [facility] MCH 27.3 27.1 - 33.3 pg [facility] MCHC 33.4 32.3 - 35.7 g/dL [facility] RDW CV 12.9 11.1 - 14.9 % [facility] RDW SD 38.2 35.7 - 48.1 fL [facility] NRBC abs 0.00 0.00 - 0.01 K/cumm [facility] Blood 04/20/2025 3:40 PM CDT 04/20/2025 4:11 PM CDT Kings Craven Jr., MD LAB BLOOD ORDERABL ES Final Result Performing Organization Address City/[facility]/ZIP Co de Phone Number [facility] [place] [address] * Comprehensive metabolic panel (04/20/2025 3:40 PM CDT) Pathologist [facility] Sodium 140 135 - 145 mmol/L Potassium, pl 4.0 3.3 - 4.9 mmol/L [facility] Chloride 105 97 - 110 mmol/L [facility] CO2 28 22 - 32 mmol/L [facility] Anion gap 7 2 - 15 mmol/L [facility] BUN 13 6 - 25 mg/dL [facility] Creatinine 0.78 0.60 - 1.10 mg/dL [facility] Glucose 115 70 - 199 mg/dL [facility] Comment: Interpretive Data Fasting glucose >/= 126 [...] classification and Diagnosis of Diabetes Diabetes Care 202; 46: S19-S40. Current interpretive data was last revised 2022. Calcium 9.4 8.5 - 10.3 mg/dL [facility] Bilirubin, total 0.2 0.1 - 1.2 mg/dL [facility] Protein, pl 7.2 6.5 - 8.5 g/dL [facility] Albumin 4.2 3.5 - 5.0 g/dL [facility] Alk phos 97 40 - 130 Units/L [facility] ALT 23 7 - 45 Units/L [facility] AST 20 10 - 45 Units/L [facility] Blood 04/20/2025 3:40 PM CDT 04/20/2025 4:11 PM CDT us Kings Craven Jr., MD LAB BLOOD ORDERABL ES Final Result [facility] Department [place] [address] * EMG/NCV (02/20/2025 3:12 PM CDT) Anatomical Region Laterality Modality Other Narrative 02/20/2025 3:12 PM CDT AlKatalina Sanchez MD 02/20/2025 3:22 PM EMG/NCV - Date/Time: 02/20/2025 3:12 PM Performed by: Katalina Ha MD Authorized by: Anabell Hinds NP Anabell Hinds NP NEUROLOGY ORDERABLES Final Re sult from Last 3 Months Insurance [facility] CHOICE [facility] HMO/PPO Address: [facility] [address] [place] [address] [facility] ACCESS Member Subscriber Plan / Payer (Ef fective 2025-Present) Name:Katrin Lopez Member ID:[id number] Relation to Subscriber:Self Name:Katrin Lopez Subscriber ID:[id number] Payer ID:[id number] (NAIC) Type:[facility] Address: [address] [place] [address] [facility] CHOICE [facility] HMO/PPO Address: [address] [address] [place] [address] [facility] CHOICE [facility] HMO/PPO Address: [address] [address] [place] [address] [employer] [facility] CHOICE [facility] HMO/PPO Address: [place] [address] Advance Directives For more information, please contact: [phone] * Full Code (Latest Code Status on File) Date Activated Date Inactivated Comments 08/14/2023 1:39 PM 08/14/2023 7:43 PM Care Teams Commercial Review Appraiser Relationship Specialty Start Date End Date Zion Jimenez MD [address] [place] [address] PCP - General Endocrinology Diabetes & Metabolism 08/31/21 Billy Paz MD [address] [place] [address] Referring Physician Obstetrics and Gynecology 04/18/21
--- NOTE | 2025-05-22 17:50 | ECG_ITS ---
Test Date: 2025-05-22 17:55:16 Measurements Intervals [place] Rate: 65 P: 37 MN: 181 QRS: 55 QRSD: 90 T: 19 QT: 386 QTc: 404 Interpretive Statements SINUS RHYTHM NORMAL ELECTROCARDIOGRAM No previous ECG available for comparison Electronically Signed On 05-23-2025 08:46:31 CDT by Terry Garcia M.D.
[2025-05-22 17:51] VITALS: BP 172/90; PULSE 72; RESP 18; TEMP 36.4; O2SAT 100
[2025-05-22 20:12] VITALS: BP 136/87; PULSE 72; RESP 18; TEMP 36.6; O2SAT 100
--- OUTSIDE RECORDS SUMMARY | 2025-05-22 20:41 | XMS_ITS | Clinical Summary ---
Author Organization [facility] Address [address] [place] [address] Care Team Providers Care Ship Pilot Name Role Phone Billy Paz MD Unavailable [phone] Zion Jimenez MD Primary Care Provider Allergies [...] 1 023 Active topiramate (TOPAMAX) 25 mg capsuleIndicati ons:IIH (idiopathic intracranial hypertension) Take 1 capsule (25 mg total) by mouth 2 (two) times a day 60 capsule 5 025 2024 Discontinued topiramate (TOPAMAX) 25 mg capsule Take 2 capsules (50 mg total) by mouth 2 (two) times a day 120 capsule 6 025 2024 Discontinued Active Problems Problem Noted [...] 12/26/2022 Assessment & Plan (12/26/2022 3:59 PM SENIOR STATISTICIAN): Plantar fasciitis? Seeing podiatry soon. Depression with anxiety 12/26/2022 Assessment & Plan (01/10/2024 3:42 PM SENIOR STATISTICIAN): Doing well off Lexapro. She will resume if symptoms worsen or impair daily functioning. Assessment & Plan (04/05/2023 3:36 PM CDT): Improved on Lexapro 10 mg daily. Continue same dose. Assessment & Plan (12/26/2022 4:00 PM SENIOR STATISTICIAN): Start Lexapro 10 mg daily. Discussed benefits and possible side effects. Focal nodular hyperplasia of liver 12/20/2021 Assessment & Plan (12/26/2022 3:59 PM SENIOR STATISTICIAN): Saw GI previously. Assessment & Plan (12/20/2021 3:29 PM SENIOR STATISTICIAN): Will see Dr. Reyes in January. Encounter for preventive care 12/20/2021 Assessment & Plan (12/26/2022 4:00 PM SENIOR STATISTICIAN): Overall good health. See REQUIREMENTS ANALYST routinely for well woman visits. Breast cancer screening to start at age 40. Colon cancer screening per GI. Vaccinations UTD. Labs UTD. Assessment & Plan (12/20/2021 3:29 PM SENIOR STATISTICIAN): Continue healthy lifestyle. Start MMG at age 39 due to average risk. Colon cancer screening per GI. Vaccinations UTD. See REQUIREMENTS ANALYST for routine follow up. Vision changes 08/31/2021 Assessment & Plan (08/31/2021 8:54 AM CDT): Labs today Opth visit If reoccurs call and will proceed with head imaging Liver hemangioma 04/25/2021 Assessment & Plan (01/10/2024 4:05 PM SENIOR STATISTICIAN): No further follow up needed. Avoid estrogen. Ulcerative proctitis with rectal bleeding 2020 Assessment & Plan (01/10/2024 3:46 PM SENIOR STATISTICIAN): Take mesalamine more consistently. Sees GI. Assessment & Plan (04/05/2023 3:36 PM CDT): GI appt upcoming. Assessment & Plan (12/26/2022 3:59 PM SENIOR STATISTICIAN): Needs to see GI - she will call for an appt. Assessment & Plan (12/20/2021 3:29 PM SENIOR STATISTICIAN): Instructed to see GI again for further management. Mesalamine previously prescribed, but not taking. Irritable bowel syndrome with diarrhea Resolved Problems Problem Noted Date Diagnosed Date Resolved Date Neuropathy 10/11/2022 12/26/2022 Assessment & Plan (10/11/2022 3:32 PM SENIOR STATISTICIAN): Her foot discomfort sounds neuropathic in nature. [...] Type Department Care Team Description 05/22/2025 Telephone [facility] General Neurology [address] [facility] 6th Floor [address] [place] [address] Kings Craven Jr., MD 05/22/2025 Telephone [facility] General Neurology [address] [facility] 6th [place] [address] [place] [address] Stacy Gillis RN 05/20/2025 Telephone [facility] Ophthalmology [address] [place] [address] Sydney Medina OD requesting referral 05/19/2025 9:11 AM CDT - 05/19/2025 11:59 PM CDT Hospital Encounter [facility] Neuro Interventional Radiology [address] [place] [address] Arrived Discharge Disposition: Discharge to home or self care 05/15/2025 10:06 AM CDT - 05/15/2025 11:59 PM CDT Hospital Encounter [facility] Neuro Interventional Radiology [address] [place] [address] IIH (idiopathic intracranial hypertension) Discharge Disposition: Discharge to home or self care 05/15/2025 Telephone [facility] General Neurology [address] [facility] 6th Floor [address] [place] [address] Kings Craven Jr., MD 05/15/2025 Orders Only [facility] Neuro Interventional Radiology [address] [place] [address] Myra Rodriguez, WALLACE 05/12/2025 Telephone [facility] General Neurology [address] [place] [address] [place] [address] Stacy Gillis, [place] 05/12/2025 Telephone [facility] Neuro Interventional Radiology [address] [place] [address] Dianna Cowan, W[place]ACE 05/11/2025 Telephone [facility] Neuro Interventional Radiology [address] [place] [address] Dianna Cowan, W[place]ACE 05/06/2025 Telephone [facility] Neuro Interventional Radiology [address] [place] [address] Dianna Cowan, W[place]ACE 04/21/2025 Telephone [facility] Neurology [address] [place] [address] 6th [place] [address] Stacy Gillis, WALLACE 04/20/2025 5:40 PM CDT Lab [facility] [address] [place] [address] Nonintractable headache, unspecified chronicity pattern, unspecified headache type 04/20/2025 2:30 PM CDT Office Visit [facility] General Neurology [address] [place] [address] 6th [place] [address] Kings Craven Jr., MD IIH (idiopathic intracranial hypertension) (Primary Dx); Nonintractable headache, unspecified chronicity pattern, unspecified headache type 03/09/2025 Telephone [facility] Scheduling [address] [place] [address] Kings Craven Jr., MD Scheduling Appointments 02/24/2025 Results Follow-Up [facility] [address] [facility] [address] [facility] [address] [place] [phone] Anabell Hinds NP EMG/NCV - 02/20/2025 2:20 PM CDT Procedure visit [facility] Neurological Testing [address] [place] [address] [place] [phone] Numbness and tingling from Last 3 Months Immunizations Immunization Administration Dates Next Due DT 11/05/2008 Tdap 09/30/2017 Surgical History Surgery Date Site/Laterality Comments ORAL SURGERY Oral surgery KNEE SURGERY Left knee surgery KNEE SURGERY Knee Surgery - (Added by Conv) SECTION COLONOSCOPY LUMBAR PUNCTURE WO INJECTION , DIAGNOSTIC 05/15/2025 N/A EPIDURAL BLOOD PATCH 05/19/2025 N/A Medical History Medical History Date Comments Sinusitis Sinusitis Personal history of other di seases of the digestive system History of irritable bowel s yndrome - (Added by Conv) Ulcerative colitis (HCC) Irritable bowel syndrome [...] Conv) Cataracts Mother Diabetes Mother Diabetes mellit ; /Family history of diabetes mellitus - (Added [...] on file Legal Sex Female 2:16 AM SENIOR STATISTICIAN Gender Identity Female 11/22/2022 10:26 AM SENIOR STATISTICIAN Sexual Orientation Straight 11/22/2022 10 :26 AM SENIOR STATISTICIAN Obstetrics History Last Filed Vital Signs Vital [...] of headache after the procedure. Dr. Dillon (academic affairs vice president) was present and participated in the procedure. [...] of headache after the procedure. Dr. Dillon (academic affairs vice president) was present and participated in the procedure. Dictated by: Narendra Zee MD The radiology attending physician has personally reviewed this study, and had reviewed and/or edited this written report and agrees with it. Electronically signed by: Vilma Palmer M.D. Narendra Zee MD [facility] IR PROCEDURES Final Resul t * IR [...] M.D. Kings Craven Jr., MD IMG FLUOROSCOPY [place] OCEDURES Final Result * (ABNORMAL) Cell count [...] STOOLS ORDERABLES Final Result Performing Organization Address [facility] Co de Phone Number [facility] [place] [address] * Protein, total, CSF (05/15/2025 10:39 AM CDT) [facility] Protein, CSF 24 5 - 45 mg/dL Comment:Reviewed CSF 05/15/2025 10:3 9 AM CDT 05/15/2025 1:50 PM CDT Kings Craven Jr., MD LAB BODY FLUIDS AN D STOOLS ORDERABLES Final Result Performing Organization Address [facility] Co de Phone Number [facility] [place] [address] * Glucose, CSF (05/15/2025 10:39 AM CDT) [...] FLUIDS AN D STOOLS ORDERABLES Final Result [facility] [place] [address] * eGFR (04/20/2025 3:40 PM CDT) eGFR [...] MD LAB BLOOD ORDERABL ES Final Result [facility] [place] [address] * Differential, auto (04/20/2025 3:40 PM CDT) Neutrophil abs 5.94 1.50 - 6.50 K/cumm Imm gran abs 0.04 0.00 - 0.10 K/cumm [facility] Lymphocyte abs 1.76 0.80 - 3.30 K/cumm [facility] Monocyte abs 0.55 0.20 - 0.80 K/cumm [facility] Eosinophil abs 0.11 0.00 - 0.50 K/cumm [facility] Basophil abs 0.05 0.00 - 0.10 K/cumm [facility] Neutrophil pct 70.3 % [facility] Comment: Interpretive Data Percent cell count reference ranges are not reported, since discordance with absolute values may lead to misinterpretation of CBC data. Current Interpretive Data was last revised on 2018. Imm gran pct 0.5 % [facility] Comment: Interpretive Data Percent cell count reference ranges are not reported, since discordance with absolute values may lead to misinterpretation of CBC data. Current Interpretive Data was last revised on 2018. Lymphocyte pct 20.8 % [facility] Comment: Interpretive Data Percent cell count reference ranges are not reported, since discordance with absolute values may lead to misinterpretation of CBC data. Current Interpretive Data was last revised on 2018. Monocyte pct 6.5 % [facility] Comment: Interpretive Data Percent cell count reference ranges are not reported, since discordance with absolute values may lead to misinterpretation of CBC data. Current Interpretive Data was last revised on 2018. Eosinophil pct 1.3 % [facility] Comment: Interpretive Data Percent cell count reference ranges are not reported, since discordance with absolute values may lead to misinterpretation of CBC data. Current Interpretive Data was last revised on 2018. Basophil pct 0.6 % [facility] Comment: Interpretive Data Percent cell count reference ranges are not reported, since discordance with absolute values may lead to misinterpretation of CBC data. Current Interpretive Data was last revised on 2018. Blood 04/20/2025 3:40 PM CDT 04/20/2025 4:11 PM CDT Kings Craven Jr., MD LAB BLOOD ORDERABL ES Final Result Performing Organization Address City/[facility]/ZIP Co de Phone Number [facility] [place] [address] * (ABNORMAL) CBC with auto differential (04/20/2025 3:40 PM CDT) WBC 8.45 3.80 - 9.90 K/cumm Hgb 12.7 11.9 - 15.5 g/dL [facility] Hct 38.0 35.6 - 45.5 % [facility] Plt 343 150 - 400 K/cumm [facility] MPV 8.8(L) 9.1 - 12.3 fL [facility] RBC 4.65 3.90 - 5.20 M/cumm [facility] MCV 81.7 81.3 - 96.4 fL [facility] MCH 27.3 27.1 - 33.3 pg [facility] MCHC 33.4 32.3 - 35.7 g/dL [facility] RDW CV 12.9 11.1 - 14.9 % [facility] RDW SD 38.2 35.7 - 48.1 fL [facility] NRBC abs 0.00 0.00 - 0.01 K/cumm [facility] Blood 04/20/2025 3:40 PM CDT 04/20/2025 4:11 PM CDT Kings Craven Jr., MD LAB BLOOD ORDERABL ES Final Result Performing Organization Address City/[facility]/ZIP Co de Phone Number [facility] [place] [address] * Comprehensive metabolic panel (04/20/2025 3:40 PM CDT) Sodium 140 135 - 145 mmol/L Potassium, pl 4.0 3.3 - 4.9 mmol/L [facility] Chloride 105 97 - 110 mmol/L [facility] CO2 28 22 - 32 mmol/L [facility] Anion gap 7 2 - 15 mmol/L [facility] BUN 13 6 - 25 mg/dL [facility] Creatinine 0.78 0.60 - 1.10 mg/dL [facility] Glucose 115 70 - 199 mg/dL [facility] Comment: Interpretive Data Fasting glucose [...] 2022. Calcium 9.4 8.5 - 10.3 mg/dL [facility] Bilirubin, total 0.2 0.1 - 1.2 mg/dL [facility] Protein, pl 7.2 6.5 - 8.5 g/dL [facility] Albumin 4.2 3.5 - 5.0 g/dL [facility] Alk phos 97 40 - 130 Units/L [facility] ALT 23 7 - 45 Units/L [facility] AST 20 10 - 45 Units/L [facility] Blood 04/20/2025 3:40 PM CDT 04/20/2025 4:11 PM CDT us Kings Craven Jr., MD LAB BLOOD ORDERABL ES Final Result [facility] [place] [address] * EMG/NCV (02/20/2025 3:12 PM CDT) Anatomical Region Laterality Modality Other Narrative 02/20/2025 3:12 PM CDT Katalina Ha MD 02/20/2025 3:22 PM EMG/NCV - Date/Time: 02/20/2025 3:12 PM Performed by: Katalina Ha MD Authorized by: Anabell Hinds NP Anabell Hinds NP NEUROLOGY ORDERABLES Final Re sult from Last [address] [place] [address] [facility] CHOICE PLUS [facility] HMO/PPO Address: [address] [address] [place], [place] [id number] [place] [address] [facility] CHOICE PLUS [facility] HMO/PPO Address: [address] [address] [place] [address] [facility] CHOICE PLUS [facility] HMO/PPO Address: [address] [address] [place] [address] [place] [address] [facility] CHOICE PLUS [facility] HMO/PPO Address: [place] [address] Advance Directives For more information, please contact: [phone] * Full Code (Latest Code Status on File) Date Activated Date Inactivated Comments 08/14/2023 1:39 PM 08/14/2023 7:43 PM Care Teams Ship Pilot Relationship Specialty Start Date End Date Zion Jimenez MD [address] [place] [address] PCP - General Endocrinology Diabetes & Metabolism 08/31/21 Billy Paz MD [address] [place] [address] Referring Physician Obstetrics and Gynecology 04/18/21
--- OUTSIDE RECORDS SUMMARY | 2025-05-22 20:41 | XMS_ITS | Encounter Summary ---
Author Organization [facility] Address [address] [place] [address] Phone Care Team Providers Care News Content Specialist Name Role Phone Billy Paz MD Unavailable [phone] Zion Jimenez MD Primary Care Provider Encounter Details Date Type Department Care Team (Late st Contact Info) Description 05/22/2025 Telephone [facility] General Neurology [address] [facility] 6th Floor [address] [place] [address] Kings Craven Jr., MD [address] [place] [address] Social History Tobacco Use Types Packs/Day Years [...] on file Legal Sex Female 2:16 AM FLITCH HANGER Gender Identity Female 11/22/2022 10:26 AM FLITCH HANGER Sexual Orientation Straight 11/22/2022 10 :26 AM FLITCH HANGER documented as of this encounter Miscellaneous Notes * Telephone Encounter - Kings Craven Jr., MD - 05/22/2025 7:33 PM CDT I spoke with Katrin Swan about the shortness of breath and dizziness.. She went to the ER andis being evaluated. The topiramate was discontinued. documented in this encounter Plan of Treatment Not on file documented as of this encounter Visit Diagnoses Not on filedocumented in this encounter Discontinued Medications Medication Sig Discontinue Reason Start Date End Da te topiramate (TOPAMAX) 25 mg capsule Take 2 capsules (50 mg total) by mouth 2 (two) times a day 05/15/2025 05/22/2025 documented as of this encounter Care Teams News Content Specialist Relationship Specialty Start Date End Date Zion Jimenez MD [address] [email or web address] [address] PCP - General Endocrinology Diabetes & Metabolism 08/31/21 Billy Paz MD [address] [place] [address] Referring Physician Obstetrics and Gynecology 04/18/21 documented as of this encounter
--- OUTSIDE RECORDS SUMMARY | 2025-05-22 20:41 | XMS_ITS | Encounter Summary ---
Author Organization [facility] Healthcare Address [address] [place] [address] Care Team Providers Care Unit Secy Name Role Phone Billy Paz MD Unavailable [phone] Zion Jimenez MD Primary Care Provider Encounter Details Date Type Department Care Team (Late st Contact Info) Description 04/12/2021 Telephone [facility] [address] [facility] [place] [address] Tameka Roman, RT Social History Tobacco Use Types Packs/Day Years Used Date Smoking Tobacco: Never Smokeless Tobacco: Never Alcohol Use Standard Drinks/Week Comments No 0 (1 standard drink = 0.6 oz pur e alcohol) Comments Unknown Sex and Gender Information Value Date Recorded Sex Assigned at Not on file Legal Sex Female 2:16 AM DIRECT MARKETING MANAGER Gender Identity Female 11/22/2022 10:26 AM DIRECT MARKETING MANAGER Sexual Orientation Straight 11/22/2022 10 :26 AM DIRECT MARKETING MANAGER documented as of this encounter Plan of Treatment Not on file documented as of this encounter Visit Diagnoses Not on filedocumented in this encounter Additional Health Concerns Infection Onset Date Last Indicated Resolved Time COVID: Suspected 02/08/2023 02/08/2023 02/09/2023 3:05 AM CDT documented as of this encounter Care Teams Unit Secy Relationship Specialty Start Date End Date Zion Jimenez MD [address] [place] [address] PCP - General Endocrinology Diabetes & Metabolism 08/31/21 Billy Paz MD [address] [place] [address] Referring Physician Obstetrics and Gynecology 04/18/21 documented as of this encounter
--- OUTSIDE RECORDS SUMMARY | 2025-05-22 20:41 | XMS_ITS | Encounter Summary ---
Author Organization [facility] Healthcare Address [address] [place] [address] Care Team Providers Care Vibrator Equipment Tester Name Role Phone Billy Paz MD Unavailable [phone] Zion Jimenez MD Primary Care Provider Encounter Details Date Type Department Care Team (Late st Contact Info) Description 05/19/2021 Telephone [facility] [address] [place] [address] Tameka Roman, RT Social History Tobacco Use Types Packs/Day Years Used Date Smoking Tobacco: Never Smokeless Tobacco: Never Alcohol Use Standard Drinks/Week Comments No 0 (1 standard drink = 0.6 oz pur e alcohol) Comments Unknown Sex and Gender Information Value Date Recorded Sex Assigned at Not on file Legal Sex Female 2:16 AM COOKING TEACHER Gender Identity Female 11/22/2022 10:26 AM COOKING TEACHER Sexual Orientation Straight 11/22/2022 10 :26 AM COOKING TEACHER documented as of this encounter Plan of Treatment Not on file documented as of this encounter Visit Diagnoses Not on filedocumented in this encounter Additional Health Concerns Infection Onset Date Last Indicated Resolved Time COVID: Suspected 02/08/2023 02/08/2023 02/09/2023 3:05 AM CDT documented as of this encounter Care Teams Vibrator Equipment Tester Relationship Specialty Start Date End Date Zion Jimenez MD [address] [place] [address] PCP - General Endocrinology Diabetes & Metabolism 08/31/21 Billy Paz MD [address] [place] [address] Referring Physician Obstetrics and Gynecology 04/18/21 documented as of this encounter
--- OUTSIDE RECORDS SUMMARY | 2025-05-22 20:41 | XMS_ITS | Referral Summary ---
Author Organization [facility] Address [address] [place] [address] Care Team Providers Care Scoring Machine Operator Name Role Phone Billy Paz MD Unavailable [phone] Zion Jimenez MD Primary Care Provider Encounters Date Type Department Care Team Description 05/22/2025 Telephone [facility] General Neurology [address] [facility] 6th Floor [address] [place] [phone] Kings Craven Jr., MD 05/22/2025 Telephone [facility] General Neurology [address] [facility] 6th [place] [address] [place] [phone] Stacy Gillis RN 05/20/2025 Telephone [facility] Ophthalmology [address] [place] [address] Sydney Medina OD requesting referral 05/19/2025 9:11 AM CDT - 05/19/2025 11:59 PM CDT Hospital Encounter [facility] Neuro Interventional Radiology 1 [place] [address] Arrived Discharge Disposition: Discharge to home or self care 05/15/2025 Telephone [facility] General Neurology [address] [facility] 6th Floor [address] [place] [phone] Kings Craven Jr., MD 05/15/2025 Orders Only [facility] Neuro Interventional Radiology 1 [place] [address] Myra Rodriguez, WALLACE 05/15/2025 10:06 AM CDT - 05/15/2025 11:59 PM CDT [facility] Neuro Interventional Radiology 1 [place] [address] IIH (idiopathic intracranial hypertension) Discharge Disposition: Discharge to home or self care 05/12/2025 Telephone [facility] General Neurology [address] [place] [address] 6th [place] [address] Stacy Gillis, WALLACE 05/12/2025 Telephone [facility] Neuro Interventional Radiology 1 [place] [address] Dianna Cowan, WALLACE 05/11/2025 Telephone [facility] Neuro Interventional Radiology [address] [place] [address] Dianna Cowan, WALLACE 05/06/2025 Telephone [facility] Interventional Radiology [address] [place] [address] Dianna Cowan, WALLACE 04/21/2025 Telephone [facility] General Neurology [address] [place] [address] [place] [address] Stacy Gillis, WALLACE 04/20/2025 5:40 PM CDT [facility] Advanced [facility] ([facility]) [address] [place] [phone] Nonintractable headache, unspecified chronicity pattern, unspecified headache type 04/20/2025 2:30 PM CDT Office Visit [facility] General Neurology [address] [place] [address] 6th [place] [address] Kings Craven Jr., MD IIH (idiopathic intracranial hypertension) (Primary Dx); Nonintractable headache, unspecified chronicity pattern, unspecified headache type 03/09/2025 Telephone [facility] Scheduling [address] [place] [address], [place] [address] Kings Craven Jr., MD Scheduling Appointments 02/24/2025 Results Follow-Up [facility] [address] [facility] [address] [place] [phone] Anabell Hinds, ALICIA EMG/NCV - 02/20/2025 2:20 PM CDT Procedure visit [facility] Neurological Testing [address] [facility] Medicine 6th [place] [address] [place] [address] Numbness and tingling from Last 3 Months [...] 12/26/2022 Assessment & Plan (12/26/2022 3:59 PM BEAM CARRIER HAULER PUSHER): Plantar fasciitis? Seeing podiatry soon. Depression with anxiety 12/26/2022 Assessment & Plan (01/10/2024 3:42 PM BEAM CARRIER HAULER PUSHER): Doing well off Lexapro. She will resume if symptoms worsen or impair daily functioning. Assessment & Plan (04/05/2023 3:36 PM CDT): Improved on Lexapro 10 mg daily. Continue same dose. Assessment & Plan (12/26/2022 4:00 PM BEAM CARRIER HAULER PUSHER): Start Lexapro 10 mg daily. Discussed benefits and possible side effects. Focal nodular hyperplasia of liver 12/20/2021 Assessment & Plan (12/26/2022 3:59 PM BEAM CARRIER HAULER PUSHER): Saw GI previously. Assessment & Plan (12/20/2021 3:29 PM BEAM CARRIER HAULER PUSHER): Will see Dr. Reyes in January. Encounter for preventive care 12/20/2021 Assessment & Plan (12/26/2022 4:00 PM BEAM CARRIER HAULER PUSHER): Overall good health. See TONAL REGULATOR routinely for well woman visits. Breast cancer screening to start at age 40. Colon cancer screening per GI. Vaccinations UTD. Labs UTD. Assessment & Plan (12/20/2021 3:29 PM BEAM CARRIER HAULER PUSHER): Continue healthy lifestyle. Start MMG at age 40 due to average risk. Colon cancer screening per GI. Vaccinations UTD. See TONAL REGULATOR for routine follow up. Vision changes 08/31/2021 Assessment & Plan (08/31/2021 8:54 AM CDT): Labs today Opth visit If reoccurs call and will proceed with head imaging Liver hemangioma 04/25/2021 Assessment & Plan (01/10/2024 4:05 PM BEAM CARRIER HAULER PUSHER): No further follow up needed. Avoid estrogen. Ulcerative proctitis with rectal bleeding 2020 Assessment & Plan (01/10/2024 3:46 PM BEAM CARRIER HAULER PUSHER): Take mesalamine more consistently. Sees GI. Assessment & Plan (04/05/2023 3:36 PM CDT): GI appt upcoming. Assessment & Plan (12/26/2022 3:59 PM BEAM CARRIER HAULER PUSHER): Needs to see GI - she will call for an appt. Assessment & Plan (12/20/2021 3:29 PM BEAM CARRIER HAULER PUSHER): Instructed to see GI again for further management. Mesalamine previously prescribed, but not taking. Irritable bowel syndrome with diarrhea Resolved Problems Problem Noted Date Diagnosed Date Resolved Date Neuropathy 10/11/2022 12/26/2022 Assessment & Plan (10/11/2022 3:32 PM BEAM CARRIER HAULER PUSHER): Her foot discomfort sounds neuropathic in nature. [...] on file Legal Sex Female 2:16 AM BEAM CARRIER HAULER PUSHER Gender Identity Female 11/22/2022 10:26 AM BEAM CARRIER HAULER PUSHER Sexual Orientation Straight 11/22/2022 10 :26 AM BEAM CARRIER HAULER PUSHER Last Filed Vital Signs Vital Sign Reading [...] of headache after the procedure. Dr. Dillon (rn radiology) was present and participated in the procedure. [...] of headache after the procedure. Dr. Dillon (rn radiology) was present and participated in the procedure. Dictated by: Narendra Zee MD The radiology attending physician has personally reviewed this study, and had reviewed and/or edited this written report and agrees with it. Electronically signed by: Vilma Palmer M.D. Narendra Zee MD IMG IR PROCEDURES Final Resul t * IR Lumbar Puncture, Diagnostic incl Fluoro Guidance (05/15/2025 11:17 AM CDT) Anatomical Region Laterality Modality Spine N/A Radio Fluoroscop y 05/15/2025 11:2 3 AM CDT Impressions 05/15/2025 12:51 PM CDT Successful diagnostic lumbar puncture under fluoroscopic guidance. Dictated by: Fransico Bhakta, M.D. The radiology attending physician has personally [...] M.D. Kings Craven Jr., MD IMG FLUOROSCOPY LA OCEDURES Final Result * (ABNORMAL) Cell count w/reflex diff, CSF (05/15/2025 10:39 AM CDT) Tube Number, CSF Tube 1 Color, CSF Colorless Colorless [facility] Clarity, CSF Clear Clear [facility] Xanthochromia , CSF Absent Absent [facility] Nucleated cells, CSF 0 0 - 5 /cumm [facility] RBC, CSF 53(H) 0 - 0 /cumm [facility] CSF 05/15/2025 10:3 9 AM CDT 05/15/2025 1:43 PM CDT Kings Craven Jr., MD LAB BODY FLUIDS AN D STOOLS ORDERABLES Final Result [facility] Department [place] [address] * Protein, total, CSF (05/15/2025 10:39 AM CDT) Protein, CSF 24 5 - 45 mg/dL Comment:Reviewed CSF 05/15/2025 10:3 9 AM CDT 05/15/2025 1:50 PM CDT Kings Craven Jr., MD LAB BODY FLUIDS AN D STOOLS ORDERABLES Final Result Performing Organization Address [facility] de Phone Number [facility] Department [place] [address] * Glucose, CSF (05/15/2025 10:39 AM CDT) [...] STOOLS ORDERABLES Final Result Performing Organization Address [facility] de Phone Number [facility] Department [place] [address] * eGFR (04/20/2025 3:40 PM CDT) eGFR [...] of Race in Diagnosing Kidney Disease, JASN 202). The CKD-EPI equation should not be used for patients with unstable renal function and has not been validated in children and those over 70. Current interpretive data was last reviewed 2021. Blood 04/20/2025 3:40 PM CDT 04/20/2025 4:16 PM CDT us Kings Craven Jr., MD LAB BLOOD ORDERABL ES Final Result [facility] Department [place] [address] * Differential, auto (04/20/2025 3:40 PM CDT) Neutrophil abs 5.94 1.50 - 6.50 K/cumm Imm gran abs 0.04 0.00 - 0.10 K/cumm [facility] Lymphocyte abs 1.76 0.80 - 3.30 K/cumm [facility] Monocyte abs 0.55 0.20 - 0.80 K/cumm [facility] Eosinophil abs 0.11 0.00 - 0.50 K/cumm [facility] Basophil abs 0.05 0.00 - 0.10 K/cumm [facility] Neutrophil pct 70.3 % [facility] Comment: Interpretive Data Percent cell count reference ranges are not reported, since discordance with absolute values may lead to misinterpretation of CBC data. Current Interpretive Data was last revised on 2018. Imm gran pct 0.5 % [facility] Comment: Interpretive Data Percent cell count reference ranges are not reported, since discordance with absolute values may lead to misinterpretation of CBC data. Current Interpretive Data was last revised on 2018. Lymphocyte pct 20.8 % [facility] Comment: Interpretive Data Percent cell count reference ranges are not reported, since discordance with absolute values may lead to misinterpretation of CBC data. Current Interpretive Data was last revised on 2018. Monocyte pct 6.5 % [facility] Comment: Interpretive Data Percent cell count reference ranges are not reported, since discordance with absolute values may lead to misinterpretation of CBC data. Current Interpretive Data was last revised on 2018. Eosinophil pct 1.3 % [facility] Comment: Interpretive Data Percent cell count reference ranges are not reported, since discordance with absolute values may lead to misinterpretation of CBC data. Current Interpretive Data was last revised on 2018. Basophil pct 0.6 % [facility] Comment: Interpretive Data Percent cell count reference ranges are not reported, since discordance with absolute values may lead to misinterpretation of CBC data. Current Interpretive Data was last revised on 2018. Blood 04/20/2025 3:40 PM CDT 04/20/2025 4:11 PM CDT us Kings Craven Jr., MD LAB BLOOD ORDERABL ES Final Result [facility] Department [place] [address] * (ABNORMAL) CBC with auto differential (04/20/2025 3:40 PM CDT) WBC 8.45 3.80 - 9.90 K/cumm Hgb 12.7 11.9 - 15.5 g/dL [facility] Hct 38.0 35.6 - 45.5 % [facility] Plt 343 150 - 400 K/cumm [facility] MPV 8.8(L) 9.1 - 12.3 fL [facility] RBC 4.65 3.90 - 5.20 M/cumm [facility] MCV 81.7 81.3 - 96.4 fL [facility] MCH 27.3 27.1 - 33.3 pg [facility] MCHC 33.4 32.3 - 35.7 g/dL [facility] RDW CV 12.9 11.1 - 14.9 % [facility] RDW SD 38.2 35.7 - 48.1 fL [facility] NRBC abs 0.00 0.00 - 0.01 K/cumm [facility] Blood 04/20/2025 3:40 PM CDT 04/20/2025 4:11 PM CDT us Kings Craven Jr., MD LAB BLOOD ORDERABL ES Final Result [facility] Department [place] [address] * Comprehensive metabolic panel (04/20/2025 3:40 PM CDT) Sodium 140 135 - 145 mmol/L Potassium, pl 4.0 3.3 - 4.9 mmol/L [facility] Chloride 105 97 - 110 mmol/L [facility] CO2 28 22 - 32 mmol/L [facility] Anion gap 7 2 - 15 mmol/L [facility] BUN 13 6 - 25 mg/dL [facility] Creatinine 0.78 0.60 - 1.10 mg/dL [facility] Glucose 115 70 - 199 mg/dL [facility] Comment: Interpretive Data Fasting glucose >/= 126 [...] 2022. Calcium 9.4 8.5 - 10.3 mg/dL [facility] Bilirubin, total 0.2 0.1 - 1.2 mg/dL [facility] Protein, pl 7.2 6.5 - 8.5 g/dL [facility] Albumin 4.2 3.5 - 5.0 g/dL [facility] Alk phos 97 40 - 130 Units/L [facility] ALT 23 7 - 45 Units/L [facility] AST 20 10 - 45 Units/L [facility] Blood 04/20/2025 3:40 PM CDT 04/20/2025 4:11 PM CDT Kings Craven Jr., MD LAB BLOOD ORDERABL ES Final Result Performing Organization Address [facility]/State/ZIP Co de Phone Number [facility] Department [place] [address] * EMG/NCV (02/20/2025 3:12 PM CDT) Anatomical Region Laterality Modality Other Narrative 02/20/2025 3:12 PM CDT Katalina Ha MD 02/20/2025 3:22 PM EMG/NCV - Date/Time: 02/20/2025 3:12 PM Performed by: Katalina Ha MD Authorized by: Anabell Hinds NP Anabell Hinds NP NEUROLOGY ORDERABLES Final Re sult from Last [address] [place] [address] [facility] [facility] H[facility]/PPO Address: [address] [address] [place] [address] [facility] Address: [address] [place] [address] [facility]/PPO Address: [address] [address] [place] [address] [facility] H[facility]/PPO Address: [address] [address] [place] [address] [employer] [facility] H[facility]/PPO Address: [address] [address] [place] [address] Advance Directives For more information, please contact: [phone] * Full Code (Latest Code Status on File) Date Activated Date Inactivated Comments 08/14/2023 1:39 PM 08/14/2023 7:43 PM Care Teams Scoring Machine Operator Relationship Specialty Start Date End Date Zion Jimenez MD [address] [place] [address] PCP - General Endocrinology Diabetes & Metabolism 08/31/21 Billy Paz MD [address] [place] [address] Referring Physician Obstetrics and Gynecology 04/18/21
--- OUTSIDE RECORDS SUMMARY | 2025-05-22 20:41 | XMS_ITS | Encounter Summary ---
Author Organization [facility] Address [address] [place] [address] Phone Care Team Providers Care Automatic Punch Press Operator Name Role Phone Billy Paz MD Unavailable [phone] Zion Jimenez MD Primary Care Provider Reason for Visit * Reason Onset Date Comments requesting referral 05/20/2025 Encounter Details Date Type Department Care Team (Late st Contact Info) Description 05/20/2025 Telephone [facility] Ophthalmology [address] [place], [place] [id number] Sydney Medina, OD [address] [phone] requesting referral Social History Tobacco Use Types [...] on file Legal Sex Female 2:16 AM VULCANIZER RUBBER PLATE Gender Identity Female 11/22/2022 10:26 AM VULCANIZER RUBBER PLATE Sexual Orientation Straight 11/22/2022 10 :26 AM VULCANIZER RUBBER PLATE documented as of this encounter Miscellaneous Notes [...] from Dr. Craven I spoke with Katrin Swan about the lumbar puncture results. The elevated [...] to vision loss. Please call pt back @[phone] documented in this encounter Plan of Treatment Not on file documented as of this encounter Visit Diagnoses Not on filedocumented in this encounter Care Teams Automatic Punch Press Operator Relationship Specialty Start Date End Date Zion Jimenez MD [address] [place] [address] PCP - General Endocrinology Diabetes & Metabolism 08/31/21 Billy Paz MD [address] [place] [address] Referring Physician Obstetrics and Gynecology 04/18/21 documented as of this encounter
--- OUTSIDE RECORDS SUMMARY | 2025-05-22 20:41 | XMS_ITS | Encounter Summary ---
Author Organization [facility] Address [address] [place] [address] Phone Care Team Providers Care Lard Mixer Name Role Phone Billy Paz MD Unavailable [phone] Zion Jimenez MD Primary Care Provider Encounter Details Date Type Department Care Team (Late st Contact Info) Description 05/22/2025 Telephone [facility] General Neurology [address] [facility] Medicine 6th [place] [address] [place] [address] Stacy Gillis RN Social History [...] on file Legal Sex Female 2:16 AM COMMERCIAL CREDIT SPECIALIST Gender Identity Female 11/22/2022 10:26 AM COMMERCIAL CREDIT SPECIALIST Sexual Orientation Straight 11/22/2022 10 :26 AM COMMERCIAL CREDIT SPECIALIST documented as of this encounter Miscellaneous Notes [...] from you for the visit. Neuro opthal [phone] will call when office opens after lunch Dr. Mae female cam january documented in this encounter Plan of Treatment Not on file documented as of this encounter Visit Diagnoses Not on filedocumented in this encounter Care Teams Lard Mixer Relationship Specialty Start Date End Date Zion Jimenez MD [address] [place] [address] PCP - General Endocrinology Diabetes & Metabolism 08/31/21 Billy Paz MD [address] [place] [address] Referring Physician Obstetrics and Gynecology 04/18/21 documented as of this encounter
--- OUTSIDE RECORDS SUMMARY | 2025-05-22 20:41 | XMS_ITS | Clinical Summary ---
Author Organization [facility] Address [address] [facility] [place] [address] Care Team Providers Care Core Measures Abstractor Name Role Phone Terry Morgan MD Unavailable [phone] Izabella Moraes MD Unavailable [phone] Source Comments [facility],non-owned Affiliates and Associated Physician Practices is amultiple site organization consisting of ambulatory clinics and hospital sitesin [place], [place], [place] and [place]. This disclosure is being madepursuant to the Care Everywhere program and may not contain all information available regarding this patient. Last updated 18.[facility] Allergies Active Allergy Reactions Criticality Noted Date [...] on file Legal Sex Female 11:59 AM NURSE EMERGENCY Gender Identity Not on file Sexual Orientation [...] complete this topic Insurance [address] [place] [id number] [facility] Care Teams Core Measures Abstractor Relationship Specialty Start Date End Date Terry Morgan MD Orthopedic Surgery 05/17/11 Izabella Moraes MD Internal Medicine 05/17/11
--- NOTE | 2025-05-22 21:06 | ED_ITS ---
HPI - SOB/Dyspnea General Chief Complaint: Shortness of Breath/Dyspnea Stated Complaint: sob x 1 day Time Seen by Provider: 05/22/25 19:59 History of Present Illness HPI Narrative: 40-year-old female with a history of idiopathic intracranial hypertension confirmed on lumbar puncture. She presents to the emergency department for evaluation of breath list at shortness of breath as well as chest pressure. She also has a headache still but attributed to a postdural puncture headache. Patient had an LP about 1 week ago with elevated pressure reading and her neurologist had started her on Topamax to help with the symptoms. She started having a postdural puncture headache and had a blood patch done 3 days ago with some improvement. Since then she has been having shortness of breath and chest pressure sensations. She called her doctor's and they were concerned that she has developed a blood clot. No personal history of DVT or PE but she has a family history of blood clots. Was otherwise in her normal state of health. She is endorsing breathlessness worse with certain positions and exertion but not at rest. She has been lying flat mostly for last 2 days after the 2 procedures. Endorses feeling like her blood pressures are high today but denies any nausea, vomiting, abdominal pain, back pain, fever, chills. No neurological deficits. Ambulatory without difficulty. Endorses left-sided headache without any trauma or blood thinner use. Related Data Home Medications ?Medication ?Instructions ?Recorded ?Confirmed ?Last Taken ?Type escitalopram oxalate 10 mg tablet 10 mg PO DAILY 05/18/24 05/18/24 Unknown History Allergies Allergy/AdvReac Type Severity Reaction Status Date / Time clavulanic acid Allergy Severe THROAT Verified 05/18/24 15:03 SWELLS,DIFFICULTY BREATHING amoxicillin (From Augmentin) Allergy Intermediate Difficulty Verified 05/18/24 15:03 Breathing propoxyphene AdvReac Mild DIZZINESS Verified 05/18/24 15:03 HYDROCODONE BIT AdvReac Unknown DIZZINESS Uncoded 05/18/24 15:03 Review of Systems 2 Review of Systems: As reviewed above in HPI [facility] Past Medical History Medical History Vaginal irritation Neuropathy Family History Family History Mother Diabetes mellitus Hypertension Grandparent Family history of glaucoma Cerebrovascular accident Sibling Family history of malignant neoplasm of thyroid Father Family history of seizure disorder Other No family history of cardiovascular disease Social History Social History Smoking status: Never smoker Alcohol intake: current Alcohol use details: occasionally Substance use: never Living arrangements: with family Occupation/Education: occupation 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 Mucous membranes moist. NECK: Supple. CHEST: [Clear to auscultation. No respiratory distress.] HEART: [Regular rate and rhythm]. No murmur heard. [Normal peripheral pulses.] ABDOMEN: [Soft, nondistended], [nontender], [No rigidity or guarding] EXTREMITIES: Normal range of motion. [No edema.] SKIN: Warm, dry, no rash. NEURO: [No focal deficits]. Alert and oriented [x3.] PSYCH: [Normal mood and affect.] Course Vital Signs Vital signs: Vital Signs Temperature 36.4 C 05/22/25 17:51 Pulse Rate 72 05/22/25 17:51 Respiratory Rate 18 05/22/25 17:51 Blood Pressure 172/90 H 05/22/25 17:51 Pulse Oximetry 100 05/22/25 17:51 Oxygen Delivery Room Air 05/22/25 17:51 Temperature 37.0 C 05/23/25 01:27 Pulse Rate 69 05/23/25 01:27 Respiratory Rate 18 05/23/25 01:27 Blood Pressure 122/64 05/23/25 01:27 Pulse Oximetry 99 05/23/25 01:27 Oxygen Delivery Room Air 05/22/25 20:12 MDM - SOB/Dyspnea MDM Narrative Medical decision making narrative: 40-year-old female with a history of idiopathic intracranial hypertension confirmed on lumbar puncture. She presents to the emergency department for evaluation of breath list at shortness of breath as well as chest pressure. She also has a headache still but attributed to a postdural puncture headache. Patient had an LP about 1 week ago with elevated pressure reading and her neurologist had started her on Topamax to help with the symptoms. She started having a postdural puncture headache and had a blood patch done 3 days ago with some improvement. Since then she has been having shortness of breath and chest pressure sensations. She called her doctor's and they were concerned that she has developed a blood clot. No personal history of DVT or PE but she has a family history of blood clots. Was otherwise in her normal state of health. She is endorsing breathlessness worse with certain positions and exertion but not at rest. She has been lying flat mostly for last 2 days after the 2 procedures. Endorses feeling like her blood pressures are high today but denies any nausea, vomiting, abdominal pain, back pain, fever, chills. No neurological deficits. Ambulatory without difficulty. Endorses left-sided headache without any trauma or blood thinner use. Patient is hemodynamically stable and neurologically intact, blood pressure is normalized upon resting, no tachycardia, fever, hypoxia. Current blood pressure 136/87. No focal findings on her examination she has clear breath sounds and no edema in her legs or asymmetry in her calves. She was sent in by her doctor for evaluation of potential pulmonary embolism. Patient has had contrasted CTs before without difficulty. We will treat her headache with a combination of Compazine, diphenhydramine, magnesium and a fluid bolus and likely this postdural in nature with no signs or symptoms of intracranial abnormality or hemorrhage on exam or history. No indication for CT head at this time. CT of the chest with contrast with PE protocol obtained. EKG chest x-ray and CBC, CMP, troponin ordered. Workup shows no significant leukocytosis or anemia. Normal platelet count. Electrolytes are largely unremarkable. Normal creatinine, normal LFTs, normal glucose. Negative troponin. CT angiography shows no PE or active process in the chest. She has some liver lesions and a splenic lesion. I discussed this with the patient she states she has known multiple masses in her abdomen that are thought to be adenomas and she has follow-up already for this. Chest x-ray shows no acute cardiopulmonary process. EKG shows sinus rhythm. Patient felt significantly improved upon re-evaluation and her headache is resolved. I discussed her unremarkable workup here and she is safe for discharge home with regular follow-up with her primary care provider and specialist and she has an upcoming appointment on a short-term basis already established. Patient and family's questions were answered she was safely discharged. Medical Records Attestation: I reviewed the patient's medical records. Lab Data Attestation: I reviewed the patient's lab results. 05/22/25 21:36 05/22/25 21:36 Labs: Lab Results 05/22/25 05/22/25 Range/Units 21:36 21:36 WBC 10.2 H (4.5-10.0) K/mm3 RBC 4.46 (4.2-5.4) M/mm3 Hgb 12.2 (12.0-15.0) g/dL Hct 36.2 L (37.0-47.0) % MCV 81.2 (80-100) fl MCH 27.4 (26-34) pg MCHC 33.7 (32-36) g/dl RDW 13.0 (11.5-14.5) % Plt Count 308 (150-375) k/mm3 MPV 8.5 (7.4-10.4) fl Immature Gran % (Auto) 0.6 H (0-0.5) % Neut % (Auto) 68.7 (45.5-73.1) % Lymph % (Auto) 23.2 (18.3-44.2) % Sharp % (Auto) 5.4 (2.6-8.5) % Eos % (Auto) 1.5 (0-4.4) % Baso % (Auto) 0.6 (0.2-1.2) % Lymph # (Auto) 2.36 (0.9-3.2) K/mm3 Sharp # (Auto) 0.6 (0.1-0.6) K/mm3 Eos # (Auto) 0.2 (0-0.3) K/mm3 Baso # (Auto) 0.1 (0.0-0.1) K/mm3 Abs Immat Gran (auto) 0.06 H (0.00-0.031) K/mm3 Absolute Neuts (auto) 7.0 H (1.3-6.7) K/mm3 Absolute Nucleated RBC 0.020 H (0.0-0.012) K/mm3 Nucleated RBC % 0.2 (0.0-0.2) % PT 14.1 (11.1-14.7) Seconds INR 1.1 APTT 27.6 (22.3-36.8) Seconds Sodium 138 (137-145) mmol/L Potassium 3.5 (3.4-5.0) mmol/L Chloride 111 H (98-107) mmol/L Carbon Dioxide 17 L (22-30) mmol/L Anion Gap 10 (4-12) mmol/L BUN 17 (7-17) mg/dL Creatinine 0.91 (0.7-1.0) mg/dL Estim Creat Clear Calc 70 ml/min Estimated GFR > 60 (59 - ) Glucose 93 (65-110) mg/dL Calcium 9.1 (8.4-10.2) mg/dL Total Bilirubin 0.3 (0.2-1.3) mg/dL AST 29 (14-36) U/L ALT 31 (6-35) U/L Alkaline Phosphatase 79 (38-126) U/L Troponin I < 0.012 Cancelled (0.000-0.034) ng/mL Total Protein 7.4 (6.3-8.2) g/dL Albumin 4.2 (3.5-5.1) g/dL Lipase 63 (23-300) U/L Imaging Data Attestation: I personally reviewed and interpreted this imaging study as follows: My impression: Impressions Chest X-Ray 05/22/25 18:28 IMPRESSION: No acute cardiopulmonary process. Chest CTA 05/22/25 22:48 IMPRESSION: No CT evidence of acute pulmonary embolus. No acute process detected in the chest. Multiple enhancing liver masses measuring up to 6.2 cm in the right lobe, may represent adenomas, FNH, or primary or secondary malignancy. Subcentimeter hyperenhancing foci in the spleen may represent hemangiomas or hypervascular metastases. Recommend MRI of the abdomen for further characterization. Discharge Plan Discharge Clinical Impression: Post-dural puncture headache, Dyspnea, Adenoma of liver, Abnormal CT scan Patient Disposition: Home Condition: Stable Instructions: Antibiotic Form, Idiopathic Intracranial Hypertension (ED), Epidural Blood Patch (DC) Additional Instructions: Your CT scan shows no evidence of any blood clots or acute process in the chest. Your heart, lungs, vascular system all appears healthy and normal. 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 Follow-up with your regular doctors. Contact your neurologist for close outpatient follow-up after your visit here today. Return with any urgent or emergent concerns. Patient Language: Romanian Prescriptions: No Action escitalopram oxalate 10 mg tablet 10 mg PO DAILY Follow-up/Referrals: PHYSICIAN NOT ON STAFF,NONSTAFF [Primary Care Provider] - Stand Alone Forms: Work/School Release IP Time of Disposition: 01:10
[2025-05-22] MEDS: MAGNESIUM SULF 2 GM/WATER 50ML 2 GM/50 ML BAG IVPB (21:19)
[2025-05-22] MEDS: PROCHLORPERAZINE EDISYLATE 10 MG/2 ML VIAL IM (21:21)
[2025-05-22] MEDS: SODIUM CHLORIDE 0.9% IV 1,000 ML 999 ML IV CONT (21:32)
[2025-05-22 21:33] VITALS: BP 133/89; PULSE 71; RESP 18; TEMP 36.7; O2SAT 100
[2025-05-22 21:43] LABS: Hematocrit 36.2 % (37.0-47.0); Hemoglobin 12.2 g/dL (12.0-15.0); Immature Granulocyte Percent A 0.6 % (0-0.5); Lymphocytes Absolute Auto 2.36 K/mm3 (0.9-3.2); Mean Corpuscular HGB Conc 33.7 g/dl (32-36); Mean Corpuscular Hemoglobin 27.4 pg (26-34); Mean Corpuscular Volume 81.2 fl (80-100); Nucleated Red Blood Cells Absolute Auto 0.020 K/mm3 (0.0-0.012); Nucleated Red Blood Cells Perc 0.2 % (0.0-0.2); Platelet Count Result 308 k/mm3 (150-375); Red Blood Count 4.46 M/mm3 (4.2-5.4); White Blood Count 10.2 K/mm3 (4.5-10.0)
[2025-05-22 21:55] LABS: INR 1.1; Prothrombin Time 14.1 Seconds (11.1-14.7)
[2025-05-22 21:56] LABS: Partial Thromboplastin Time 27.6 Seconds (22.3-36.8)
[2025-05-22 22:00] LABS: Alanine Aminotransferase 31 U/L (6-35); Albumin Level 4.2 g/dL (3.5-5.1); Alkaline Phosphatase 79 U/L (38-126); Anion Gap 10 mmol/L (4-12); Aspartate Amino Transferase 29 U/L (14-36); Bilirubin,Total 0.3 mg/dL (0.2-1.3); Blood Urea Nitrogen 17 mg/dL (7-17); Calcium 9.1 mg/dL (8.4-10.2); Carbon Dioxide 17 mmol/L (22-30); Chloride 111 mmol/L (98-107); Estimated CRCL calculation 70 ml/min; Estimated Glomerular Filt Rate > 60; Glucose 93 mg/dL (65-110); Lipase 63 U/L (23-300); Potassium 3.5 mmol/L (3.4-5.0); Sodium 138 mmol/L (137-145); Total Protein 7.4 g/dL (6.3-8.2)
[2025-05-22 22:11] LABS: Troponin I < 0.012 ng/mL (0.000-0.034)
[2025-05-22 23:43] VITALS: BP 148/85; PULSE 71; RESP 18; TEMP 36.7; O2SAT 98
[2025-05-23 00:44] VITALS: BP 129/75; PULSE 66; RESP 18; TEMP 36.9; O2SAT 99
[2025-05-23 01:27] VITALS: BP 122/64; PULSE 69; RESP 18; TEMP 37; O2SAT 99
== END 2025-05-23 01:28 | disposition home or self-care (01) ==
PROVIDERS: Emergency Medicine; Emergency Provider Student in an Organized Health Care Education/Training Program
DX: R06.00 Dyspnea, unspecified (principal); G97.1 Other reaction to spinal and lumbar puncture; D13.4 Benign neoplasm of liver; R93.5 Abnormal findings on diagnostic imaging of other abdominal regions, including retroperitoneum; G93.2 Benign intracranial hypertension; G62.9 Polyneuropathy, unspecified; Y84.4 Aspiration of fluid as the cause of abnormal reaction of the patient, or of later complication, without mention of misadventure at the time of the procedure
CPT/HCPCS: 36415; 71046; 71275; 80053; 83690; 84484; 85025; 85610; 85730; 93005; 96365; 96372; 96375; 99284; J0780; J1200; J3475; J7030; Q9967